=== PATIENT | female | born 1960 | race Caucasian/White ===

== ENCOUNTER 2024-06-04 20:47 | Inpatient (IN) | payer MEDICARE, SELFPAY ==
[2024-06-04] VITALS (11 sets, daily range): BP systolic 121–160; BP diastolic 65–87; BMI 44.4; BMI 43.2
--- NOTE | 2024-06-04 19:02 | ED.GENMED ---
History of Present Illness
General
Chief Complaint: Breathing Problem
Source: patient and ambulance crew
Exam Limitations: none
Time Seen by Provider: 06/04/24 18:56
Nursing documentation reviewed up to this point in time: agreed with
History of Present Illness
History of Present Illness:
63-year-old female with a past medical history of hypertension, diabetes who presents to the ER for evaluation of increasing shortness of breath in the setting of recent viral syndrome and positive outpatient COVID test. Patient reports that she
started feeling normal on and symptoms have progressed since then. She has had nausea and dry heaving, poor appetite. She says that she has had achiness, nasal congestion and cough. Over the past day or 2 has had increasing shortness of
breath and today very lethargic and EMS was called to bring her to the emergency room. She denies any chest pain. She denies any abdominal pain. No diarrhea. She denies any swelling in the legs. She says she had a positive outpatient COVID test
today but has not been on Paxlovid or other treatment. per EMS she was noted to be hypoxic in the 60s on their arrival, improved to 85% on nonrebreather mask.
Review of Systems
Review of Systems
All Other Systems: ROS reviewed and negative except as documented in HPI and ROS
Constitutional: Reports fatigue; Denies fever or chills
EENT: Reports runny nose; Denies sore throat
Respiratory: Reports cough and trouble breathing
Cardiac: Denies chest pain or palpitations
ABD/GI: Reports nausea; Denies abdominal pain, vomiting or diarrhea
: Denies flank pain
Musculoskeletal: Reports muscle pain; Denies neck pain or back pain
Neurological: Denies dizzy or headache
Phy Exam
Physical Exam
Physical Exam:
General: Awake, alert, oriented x3; in mild to moderate respiratory distress
Head: Normocephalic, atraumatic
Eyes: Conjunctiva normal
Throat: Airway intact, handling secretions
Neck: Trachea midline, supple without meningismus
Lungs: Patient has right greater than left Rales; she is hypoxic to 87% on a nonrebreather mask; she is tachypneic with respiratory rate of 30
Heart: Tachycardia with regular rhythm, no murmurs, gallops, or rubs
Abd: Soft, non distended, nontender
Neuro: No gross deficits
Skin: no rash
Extremities: No edema in extremities, equal pulses in all extremities
Scores
Heart Failure Risk
Heart Failure Risk Score: Not Applicable
Heart Score for Chest Pain Patients
STEMI patient?: Not applicable
Withdrawal Assessment of Alcohol
Withdrawal Assessment Completed?: Not applicable
Sepsis
Sepsis Screening
Sepsis Assessment: Sepsis
Sepsis Screen
Sepsis Screen: Sepsis
Date: 06/04/24
Time: 19:31
Course
Orders/Labs/Results
Orders:
Orders
06/04/24 18:56
Electrocardiogram (*1) Urgent
Reason for Study: Shortness of Breath
EKG- Treatment ONCE
CR Chest Portable - 1 View Urgent
Comment:
Reason For Exam: sob
Reason Study Needs to be Portable: Unable to Transport
06/04/24 18:59
COVID-19 Antigen Urgent
Source: Nasal Swab
Complete Blood Count/With Diff Urgent
Comprehensive Metabolic Panel Urgent
Lactate Level [Lactic Acid] Urgent
PTT Urgent
Prothrombin Time Urgent
Influenza A+B Rapid Molecular Urgent
ANANT Source: Nasal Swab
Specimen Description:
06/04/24 19:00
Blood Culture Q30M
ANANT Source: Blood/Venous
Specimen Description:
06/04/24 19:27
Dexamethasone Sod Phosphate [Decadron] 10 mg IV NOW STA
Piperacillin/Tazo 3.375 Gram [Zosyn] 3.375 gram in 50 ml IV NOW
Vancomycin [Vancocin] 2,000 mg 0.9% Sodium Chloride 500 ml [Nss] 500 ml IV NOW
06/04/24 19:30
Blood Culture Q30M
ANANT Source: Blood/Venous
Specimen Description:
0.9% Sodium Chloride 1000 ml [Nss] 1,000 ml IV BOLUS
Abnormal Lab Results
06/04/24
18:59
WBC 11.9 H 10^3/uL
(4.8-10.8)
MCH 26.9 L pg
(27.0-31.0)
MCHC 31.2 L g/dL
(33.0-37.0)
MPV 10.7 H fL
(7.4-10.4)
Abs Immat Gran (auto) 0.1 H 10^3/uL
(0-0.05)
Absolute Neuts (auto) 10.0 H 10^3/uL
(1.4-6.5)
Absolute Lymphs (auto) 0.9 L 10^3/uL
(1.2-3.4)
Absolute Monos (auto) 0.8 H 10^3/uL
(0.1-0.6)
Immature Gran % 0.9 H %
(0-0.5)
Neutrophils % 84.1 H %
(42.2-75.2)
Lymphocytes % 7.7 L %
(20.5-51.1)
PT 14.7 H Sec
(11.4-14.6)
Glucose 285 H mg/dl
(70-99)
06/04/24 18:59
06/04/24 18:59
Vital Signs
Initial and Last Documented VS:
Initial Vital Signs
Pulse Resp Pulse Ox
123 26 92
06/04/24 18:47 06/04/24 18:47 06/04/24 18:47
Last Documented Vital Signs
Pulse Resp BP Pulse Ox
97 31 160/78 94
06/04/24 19:00 06/04/24 19:00 06/04/24 19:00 06/04/24 19:00
MDM/Problems Addressed
Differential Diagnosis Includes:
Pneumonia�bacterial versus viral (COVID), bronchitis, pneumothorax, PE
MDM/Problems Addressed:
63-year-old female presents with progressive dyspnea and respiratory distress in the setting of positive outpatient COVID test and recent viral syndrome. She arrives quite hypoxic requiring 100% nonrebreather to maintain saturation in the high 80s.
She is tachypneic, tachycardic; normotensive. Physical exam as above. Respiratory called to place patient on high flow nasal cannula�this improved oxygenation and tachypnea. Will obtain a stat chest x-ray and EKG. Send labs including a CBC,
CMP, lactate and blood cultures. Swab for COVID and flu. Monitor very closely anticipate admission pending initial assessment.
Chest x-ray reviewed by shreyaows severe right-sided pneumonia. Initial labs reviewed: CBC shows leukocytosis to 11.9. Lactate less than 2. With multiple SIRS criteria and severe pneumonia will cover with antibiotics upfront although in the
setting of positive COVID possible this is a viral pneumonia. Will admit for continued management of acute respiratory failure secondary to pneumonia. Case discussed with hospitalist for admission.
Chronic conditions affecting care:
Obesity
*Radiology
Radiology exam reviewed: preliminary read by ED provider and radiology read reviewed
*Pulse Oximetry
Patient hypoxic: yes
*Critical Care Note
Total Time (30-74mins, 75-104mins- exclusive of procedures): 34
comment:
Critical care statement: A total of 34 minutes of critical care time was provided for this patient. This includes management of unstable vital signs, evaluation of the patient at bedside, frequent reassessment, discussion with
consultants/hospitalist, and review of pertinent medical records. This time was separate from time utilized to perform any aforementioned documented procedures
Data Reviewed
Review of Other/Old Records Reveals: Labs and Records
Source: patient and records
Patient Management
Discussion with other providers: Hospitalist (Discussed with hospitalist)
Escalation/DeEscalation of care consider admission/obs:
Admission indicated
ED Attending Note
-
Portions of this chart may have been created with voice recognition software.� Occasional wrong word or��sound alike� substitutions may have occurred due to the inherent limitations of voice recognition software.
Discharge Plan
Departure
Presentation/result/management discussed w/ accepting MD/DO: Hospitalist
Discharge Problem:
Pneumonia, COVID-19, Acute hypoxemic respiratory failure
Prescriptions:
No Action
atorvastatin [Lipitor] 20 mg Tablet
20 mg PO DAILY
pioglitazone [Actos] 45 mg Tablet
45 mg PO DAILY
amlodipine [Norvasc] 10 mg Tablet
10 mg PO DAILY
losartan 100 mg Tablet
100 mg PO DAILY
escitalopram oxalate [Lexapro] 10 mg Tablet
10 mg PO HS
glyburide 5 mg Tablet
10 mg PO BID
ondansetron [Zofran ODT] 4 mg Tablet,Disintegrating
4 mg PO Q6HPRN PRN (Reason: nausea)
Interventions
Interventions:
*Risk Screen - Suicide Last Done: 06/04/24 19:09
*General Assessment Last Done: 06/04/24 19:25
*Neglect/Abuse Screening Last Done: 06/04/24 19:09
*ED COVID-19 Vaccine History Last Done: 06/04/24 19:09
Discharge Date and Time
Print Language: FRENCH
[2024-06-04 19:14] LABS: % Basophils 0.3 % (0-2); % Eosinophils 0.2 % (0-6); % Immature Granulocytes 0.9 % (0-0.5); % Lymphocytes 7.7 % (20.5-51.1); % Monocytes 6.8 % (1.7-9.3); % Neutrophils 84.1 % (42.2-75.2); Absolute Immature Granulocytes 0.1 10^3/uL (0-0.05); Absolute Lymphocytes 0.9 10^3/uL (1.2-3.4); Absolute Monocytes 0.8 10^3/uL (0.1-0.6); Hematocrit 38.8 % (37.0-47.0); Hemoglobin 12.1 g/dL (12.0-16.0); Mean Corp Hgb Conc. 31.2 g/dL (33.0-37.0); Mean Corpuscular Hgb 26.9 pg (27.0-31.0); Mean Corpuscular Volume 86.4 fL (81.0-99.0); Mean Platelet Volume 10.7 fL (7.4-10.4); Nucleated Red Blood Cells % 0 %; Platelet Count 242 10^3/uL (130-400); Red Blood Cell Count 4.49 10^6/uL (4.20-5.40); Red Cell Dist. Width 13.9 % (11.5-14.5); White Blood Cell Count 11.9 10^3/uL (4.8-10.8)
[2024-06-04 19:21] LABS: INR 1.12; PT 14.7 Sec (11.4-14.6)
[2024-06-04 19:22] LABS: APTT 30.7 Sec (23.4-35.0)
[2024-06-04 19:25] LABS: Lactic Acid 1.9 mmol/L (0.7-2.0)
[2024-06-04 19:27] LABS: ALT (SGPT) 23 U/L (0-35); AST (SGOT) 36 U/L (14-36); Alkaline Phosphatase 117 U/L (38-126); Blood Urea Nitrogen 16 mg/dl (7-17); Calcium 9.1 mg/dl (8.4-10.2); Carbon Dioxide 24 mmol/L (22-30); Chloride 100 mmol/L (98-107); Estimated Creatinine Clearance 113 ml/min; Glucose 285 mg/dl (70-99); Potassium 3.7 mmol/L (3.5-5.1); Sodium 137 mmol/L (135-145); Total Bilirubin 0.5 mg/dl (0.2-1.3); Total Protein 6.7 g/dl (6.3-8.2); eGFR > 60.00
[2024-06-04] MEDS: ZOSYN 50 IV (19:39)
[2024-06-04] MEDS: NSS 1000 IV (19:39)
[2024-06-04] MEDS: DECADRON 10 MG IV (19:39)
[2024-06-04 19:46] LABS: COVID-19 Antigen Negative (Negative)
[2024-06-04] MEDS: VANCOCIN 540 MG IV (20:09)
--- NOTE | 2024-06-04 20:17 | HPS.HSE ---
Addendum entered and electronically signed by Ginger Ramos MD 06/04/24 21:17:
Patient desaturating on high flow oxygen. Trying noninvasive ventilator. Upgrading to ICU. Give 40 IV Lasix. Starting remdesivir. Patient positioned on left side due to worsening infiltrate on right side.
Original Note:
Family Physician
-
Family Physician:
Chief Complaint
-
shortness of breath
History of Present Illness
63-year-old female past medical history of hypertension, diabetes, presenting for increasing shortness of breath. Patient felt normal 3 days ago and symptoms have progressed since then. She had nausea and dry heaving, poor appetite and abdominal
pain which is since resolved. She has had achiness, nasal congestion and cough which is sometimes productive. She has had increasing shortness of breath over the past 2 days with lethargy. She denies chest pain. Denies diarrhea. Denies swelling
in the legs. She had positive home COVID test today but has not been on any other treatment. EMS noted her to be hypoxic in the 60s on arrival.
Denies any history of lung problems.
She denies smoking. She denies drugs. She drinks alcohol occasionally.
Medical History
Past Medical History
Past Medical History: Reports Other (hypertension, diabetes,)
Past Surgical History: Reports Tonsilectomy
Social History
Tobacco: Non-smoker
Alcohol: Occasional
Drug: None
Family History
Family History: Not pertinent
Allergies / Home Medications
Allergies reflects when Allergies were last updated in [email or web address].
Home Medications with original date entered in [email or web address]
Allergy/Medication List:
Allergies
Allergy/AdvReac Type Severity Reaction Status Date / Time
No Known Allergies Allergy Unverified 06/04/24 18:55
Home Medications
amlodipine 10 mg tablet (Norvasc) 10 mg PO DAILY 06/04/24
atorvastatin 20 mg tablet (Lipitor) 20 mg PO DAILY 06/04/24
escitalopram oxalate 10 mg tablet (Lexapro) 10 mg PO HS 06/04/24
glyburide 5 mg tablet 10 mg PO BID 06/04/24
losartan 100 mg tablet 100 mg PO DAILY 06/04/24
ondansetron 4 mg disintegrating tablet 4 mg PO Q6HPRN PRN nausea 06/04/24
pioglitazone 45 mg tablet (Actos) 45 mg PO DAILY 06/04/24
Review of Systems
-
History Source: Patient
A 12 point ROS was completed and negative except as noted: Yes
Constitutional: Reports No Symptoms
EENT: Reports No Symptoms
Respiratory: Reports See HPI
Cardiac: Reports No Symptoms
Abdomen/GI: Reports No Symptoms
: Reports No Symptoms
Musculoskeletal: Reports No Symptoms
Skin: Reports No Symptoms
Neurological: Reports No Symptoms
Endocrine: Reports No Symptoms
Hematologic/Lymphatic: Reports No Symptoms
Psych: Reports No Symptoms
Physical Exam
Vital Signs
Vital Signs
Pulse Resp BP Pulse Ox
89 23 160/78 95
06/04/24 19:45 06/04/24 19:45 06/04/24 19:00 06/04/24 19:47
Physical Exam
General: Well Developed, Well Nourished and No Apparent Distress
HEENT: NormoCephalic, Moist mucous membranes and Atraumatic
Respiratory: Clear
Cardiac: S1/S2 and Regular Rhythm; No Murmur or Rub
GI: Soft, Non Tender, Non Distended and Normal Bowel Sounds; No Organomegaly
Rectal: Deferred by Provider
Musculoskeletal: No Clubbing, No Cyanosis and No Edema
Skin: No Rash
Neuro: Nonfocal/grossly intact
Laboratory Results
-
06/04/24 18:59
06/04/24 18:59
Laboratory Results
PT 14.7 Sec (11.4-14.6) H 12/15/24 18:59
INR 1.12 06/04/24 18:59
APTT 30.7 Sec (23.4-35.0) 06/04/24 18:59
Lactic Acid 1.9 mmol/L (0.7-2.0) 06/04/24 18:59
Total Bilirubin 0.5 mg/dl (0.2-1.3) 06/04/24 18:59
AST 36 U/L (14-36) 06/04/24 18:59
ALT 23 U/L (0-35) 06/04/24 18:59
Alkaline Phosphatase 117 U/L (38-126) 06/04/24 18:59
Data Reviewed
-
Lab Data: Labs Reviewed by me
Old Records: Reviewed
Impression/Plan
-
IMPRESSION:
PLAN:
# Hypoxemic respiratory failure likely secondary to COVID versus bacterial pneumonia
-Patient on high flow
-COVID-positive as outpatient but negative here
-Chest x-ray shows bilateral parenchymal opacities right greater than left likely pneumonia
-Dexamethasone 6 mg daily
-Check sputum culture
-Check strep antigen, Legionella, MRSA
-Vancomycin/Zosyn
-May benefit from remdesivir, will defer to pulmonary
# Hyperglycemia secondary to infection
#Type 2 diabetes
-Insulin sliding scale
-Hold pioglitazone, glyburide
-Start Lantus 10 units instead given addition of steroids
Essential hypertension
-Continue losartan, amlodipine
Anxiety/depression
-Continue Lexapro
Full code
DVT prophylaxis�Lovenox
Diabetic diet
[2024-06-04] MEDS: LASIX 40 MG IV (21:16)
[2024-06-04] MEDS: LEXAPRO PO (22:55)
[2024-06-04] MEDS: LANTUS 0.1 UNITS SC (22:55)
[2024-06-04] MEDS: VEKLURY 250 MG IV (23:00)
[2024-06-04 23:05] LABS: Glucose - Point of Care 248 mg/dl (70-99)
[2024-06-04 23:19] LABS: HCO3 23.1 mmol/L (21-28); O2 Saturation % 98.8 % (94-98); PCO2 40 mmHg (32-35); PO2 91 mmHg (83-108); pH 7.37 (7.35-7.45)
--- NOTE | 2024-06-04 23:21 | W.PN.UPDATE ---
Update Note
Progress Note Update
Operation/Procedure: right radial arterial line placement
Consent for operation or procedure: Emergent need due to patient condition - need for invasive monitoring per protocol
Indications: Hemodynamic monitoring
After properly positioning the patient's wrist in the standard fashion, the site was prepped and draped in a sterile fashion. The radial artery was entered, noting bright red, pulsatile flow. A guidewire was easily inserted, the needle removed, and
the catheter was then placed using the Seldinger technique. The guidewire was removed, with good flow present. The catheter was then connected to the transducer with a good waveform noted. The catheter was secured with an occlusive dressing was
placed after properly cleaning and prepping the site.
Complications: The patient tolerated the procedure well and no complications were noted.
Estimated Blood Loss: minimal
Plan: Arterial line to remain in place for hemodynamic monitoring.
--- NOTE | 2024-06-04 23:31 | W.PN.SEPSIS ---
Sepsis
Vital Signs
Pulse Resp BP Pulse Ox
90 30 160/87 92
06/04/24 21:45 06/04/24 21:45 06/04/24 21:16 06/04/24 21:45
Physical Exam
Physical Exam:
A focused exam was performed after fluid resuscitation.
Capillary Refill
Bilateral Upper Extremity:
Rosette Time: Less than 3 sec
Bilateral Lower Extremity:
Rosette Time: Less than 3 sec
Pulse Evaluation
Bilateral Radial:
Pulse Evaluation: Present
Bilateral Dorsalis Pedis:
Pulse Evaluation: Present
--- NOTE | 2024-06-04 23:43 | PHA.VAN.IN ---
Assessment
- Assessment
Renal Function: Unknown baseline
AUC Dosing Plan
- Dosing Variables
Dosing Weight (kg): 110.6
Dosing CrCl (ml/min): 113
Vd coefficient (L/kg): 0.5
- Empiric Dosing
Initial / Loading Dose: Vancomycin 2000mg given 06/04 at 2000
Maintenance Regimen: Vancomycin 1250mg IV Q12h to start 06/05 at 0600
Estimated AUC (mcg*h/mL): 494
Estimated Peak (mcg*h/mL): 32.7
Estimated Trough (mcg/ml): 11.6
Estimated Half Life (H): 7.1
- Monitoring
No levels ordered at this time: Will order levels prior to steady state.
MRSA Screen: Ordered per protocol
Pharmacokinetics Vancomycin I
- -
Patient Age: 63
Patient Sex: Female
Vancomycin Day #: 1
Indication: Pulmonary/Respiratory
Requesting Provider: Dr. Ramos
Pertinent Antimicrobial Allergies:
NKA
Height / Weight:
Height 5 ft 3 in
Actual Weight 110.6 kg
Pertinent Past Medical History: BMI 43.2
- Vital Signs / Lab Results
Pulse Resp BP Pulse Ox
68 23 121/65 97
06/04/24 23:31 06/04/24 23:31 06/04/24 23:31 06/04/24 23:31
Lab Results - Hematology
06/04/24
18:59
WBC 11.9 H
Lab Results - Chemistry
06/04/24
18:59
BUN 16
Creatinine 0.6
Estimated Creat Clear 113
Albumin 4.0
06/04/24
18:59
Lactic Acid 1.9
Microbiology Results
06/04/24 18:59 Influenza Types A & B (ALYCE) - Final
Nasal Swab Negative for Influenza A & B, NAAT
Negative results must be combined with clinical observations
and patient history.
Nucleic Acid Amplification test (NAAT)performed on the
[employer] platform.
--- NOTE | 2024-06-04 23:52 | PTCARENOTE ---
On assessment pt AAOX3, denies pain, increasing anxious, generalized weakness, SR on the monitor, pt on NIV, 97%, NPO, purwick in place, skin intact, Natasha placed, CXR completed, at bedside, call lyon in reach
[2024-06-05] VITALS (19 sets, daily range): BP systolic 113–155; BP diastolic 60–96; BMI 44.5
[2024-06-05] MEDS: NOVOLOG FLEXPEN-LOW RESISTANCE SC (00:39)
[2024-06-05] MEDS: ZOSYN 50 IV ×2 (01:02→08:20)
[2024-06-05 04:08] LABS: B.E. -1.8 mmol/L; HCO3 23.1 mmol/L (21-28); PCO2 39 mmHg (32-35); PO2 220 mmHg (83-108); pH 7.38 (7.35-7.45)
[2024-06-05 04:17] LABS: % Basophils 0.1 % (0-2); % Eosinophils 0.6 % (0-6); % Immature Granulocytes 0.5 % (0-0.5); % Lymphocytes 8.2 % (20.5-51.1); % Monocytes 3.3 % (1.7-9.3); % Neutrophils 87.3 % (42.2-75.2); Absolute Eosinophils 0.1 10^3/uL (0-0.7); Absolute Immature Granulocytes 0.1 10^3/uL (0-0.05); Absolute Lymphocytes 0.8 10^3/uL (1.2-3.4); Absolute Monocytes 0.3 10^3/uL (0.1-0.6); Absolute Neutrophils 8.3 10^3/uL (1.4-6.5); Hematocrit 33.9 % (37.0-47.0); Hemoglobin 10.7 g/dL (12.0-16.0); Mean Corp Hgb Conc. 31.6 g/dL (33.0-37.0); Mean Corpuscular Hgb 26.8 pg (27.0-31.0); Mean Corpuscular Volume 84.8 fL (81.0-99.0); Mean Platelet Volume 10.9 fL (7.4-10.4); Nucleated Red Blood Cells % 0 %; Platelet Count 235 10^3/uL (130-400); Red Cell Dist. Width 13.9 % (11.5-14.5); White Blood Cell Count 9.5 10^3/uL (4.8-10.8)
[2024-06-05 04:45] LABS: Procalcitonin 0.17 ng/ml (0.0-0.25)
[2024-06-05 04:52] LABS: ALT (SGPT) 25 U/L (0-35); AST (SGOT) 64 U/L (14-36); Albumin 3.4 g/dl (3.5-5.0); Alkaline Phosphatase 77 U/L (38-126); Blood Urea Nitrogen 19 mg/dl (7-17); Calcium 8.7 mg/dl (8.4-10.2); Carbon Dioxide 20 mmol/L (22-30); Chloride 105 mmol/L (98-107); Estimated Creatinine Clearance 96 ml/min; Glucose 260 mg/dl (70-99); Magnesium 1.9 mg/dl (1.6-2.3); Phosphorus 3.8 mg/dl (2.5-4.5); Potassium 4.3 mmol/L (3.5-5.1); Sodium 137 mmol/L (135-145); Total Bilirubin 0.5 mg/dl (0.2-1.3); Total Protein 6.1 g/dl (6.3-8.2); eGFR > 60.00
[2024-06-05] MEDS: VANCOCIN 275 MG IV (05:51)
[2024-06-05 05:54] LABS: Glucose - Point of Care 240 mg/dl (70-99)
--- NOTE | 2024-06-05 06:46 | PTCARENOTE ---
BS 240 at 0530, pharmacy called for insulin pen, no med on the floor yet
--- NOTE | 2024-06-05 08:13 | CON.INTV ---
Consultation
Consultation Request
Date/Time Consultation Requested: 06/04/20242316
Date/Time Consultation Performed: 06/05/2024807
Requesting Provider: JENNIFER Wheatley
Performing Provider: Dr. Olivas
Reason for Consultation: Hypoxia/Pneumonia
Medical History
-
Chief Complaint: SOB
History of Present Illness:
63-year-old morbidly obese female non-smoker with a past medical history of hypertension, hyperlipidemia, DM type II and anxiety who presents with low oxygen levels. Patient has been more short of breath for past 2 days which worsened and 911 was
called and when EMS arrived her saturations were in the 60s on room air. 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
dry heaving. About 3 days prior to arrival she felt in her usual state of health. EMS applied NRB onto the patient - initially in the ER she was tachycardic to 123, breathing at 26 breaths/min, saturating 92% on nonrebreather and BP 156/86.
Initial labs showed mild leukocytosis to 11.9, glucose 285, and COVID-19 antigen negative. Blood cultures were collected and flu A/B swab was negative. Initial CXR showed bilateral parenchymal opacities, worse on the right. In the ER she was
given Decadron 10 mg IVP X1, Zosyn, vancomycin and IVF with NS 0.9% X1 liter. She was then transitioned to high flow nasal cannula however still was hypoxic so she was transition to noninvasive ventilation, and admitted to the ICU for further care.
Services Delivery Driver services consulted for additional management/recommendations.
Patient was seen and evaluated this morning at bedside. Currently, HR: 77, BP: 144/55, SpO2: 90% on noninvasive ventilation with IPAP 16, EPAP: 8 and FiO2 60%. Her VTe is 524 mL and she is breathing at 23 breaths/min. She says she feels okay
although she is still coughing up some phlegm, and says that the mask is helping her with her shortness of breath. She currently denies chest pain, [place], abdominal pain, nausea, fevers or chills.
PMHx: Hypertension, hyperlipidemia, DM type II, morbid obesity, anxiety, sebaceous cyst s/p I&D
PSHx: Tonsillectomy, right knee arthroscopy, D&C
Past Medical History
Past Medical History: Other (Above as per HPI)
Past Surgical History: Other (Above as per HPI)
Social History
Tobacco: Non-smoker
Alcohol: Occasional (Socially)
Drug: None
Family History
Family History: CAD (Father)
Allergies / Home Medications
Allergies
Allergy/AdvReac Type Severity Reaction Status Date / Time
No Known Allergies Allergy Unverified 06/04/24 18:55
Home Medications
�Medication �Instructions �Recorded �Confirmed �Last Taken �Type
amlodipine 10 mg tablet (Norvasc) 10 mg PO DAILY 06/04/24 06/04/24 06/04/24 History
atorvastatin 20 mg tablet (Lipitor) 20 mg PO DAILY 06/04/24 06/04/24 06/04/24 History
escitalopram oxalate 10 mg tablet 10 mg PO HS 06/04/24 06/04/24 06/03/24 History
(Lexapro)
glyburide 5 mg tablet 10 mg PO BID 06/04/24 06/04/24 06/04/24 History
losartan 100 mg tablet 100 mg PO DAILY 06/04/24 06/04/24 06/04/24 History
ondansetron 4 mg disintegrating 4 mg PO Q6HPRN PRN nausea 06/04/24 06/04/24 06/04/24 History
tablet
pioglitazone 45 mg tablet (Actos) 45 mg PO DAILY 06/04/24 06/04/24 06/04/24 History
Review of Systems
-
History Source: Patient
All other systems: Negative unless noted (12 point ROS performed and is negative unless mentioned above.)
Vitals / Labs / Diagnostic Testing
Vital Signs
Temp Pulse Resp BP Pulse Ox
98.4 F 63 20 129/64 98
06/05/24 04:33 06/05/24 05:45 06/05/24 05:45 06/05/24 05:00 06/05/24 05:45
Lab Data
06/05/24 03:57
06/05/24 03:57
Laboratory Results
06/04/24 06/04/24 06/05/24
18:59 23:09 03:57
PT 14.7 H
INR 1.12
APTT 30.7
pH 7.37 7.38
pCO2 40 H 39 H
pO2 91 220 H
HCO3 23.1 23.1
O2 Delivery Level
Microbiology
06/04/24 18:59 Nasal Swab Influenza Types A & B (ALYCE) - Final
Negative for Influenza A & B, NAAT
Negative results must be combined with clinical observations
and patient history.
Nucleic Acid Amplification test (NAAT)performed on the
[employer] platform.
Diagnostic Testing:
Physical Exam
-
HEENT: Normocephalic and Anicteric
Cardiovascular: S1/S2, Rub (negative) and Peripheral Edema (negative)
Respiratory: Wheeze (negative), Rales (Right posterior hemithorax), Rhonchi (negative), Accessory Resp Muscle Use (negative) and Other (Diminished breath sounds bilaterally)
GI: Soft, Distended (Abdominal obesity), Non Tender and Normal Bowel Sounds
Neurology: AO x 3 and Tremors (negative)
Skin: Warm and Dry
General: Respiratory Distress (negative), Comfortable, Fever (negative) and Chills (negative)
Assessment
-
Assessment: 63-year-old morbidly obese female non-smoker with a past medical history of hypertension, hyperlipidemia, DM type II and anxiety who presents with low oxygen levels. Patient has been more short of breath for past 2 days which worsened
and 911 was called and when EMS arrived her saturations were in the 60s on room air. 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
discomfort and dry heaving. About 3 days prior to arrival she felt in her usual state of health. EMS applied NRB onto the patient - initially in the ER she was tachycardic to 123, breathing at 26 breaths/min, saturating 92% on nonrebreather and
BP 156/86. Initial labs showed mild leukocytosis to 11.9, glucose 285, and COVID-19 antigen negative. Blood cultures were collected and flu A/B swab was negative. Initial CXR showed bilateral parenchymal opacities, worse on the right. In the ER
she was given Decadron 10 mg IVP X1, Zosyn, vancomycin and IVF with NS 0.9% X1 liter. She was then transitioned to high flow nasal cannula however still was hypoxic so she was transition to noninvasive ventilation, and admitted to the ICU for
further care. Services Delivery Driver services consulted for additional management/recommendations.
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
Impression:
#Acute respiratory failure with hypoxia due to multifocal pneumonia in the setting of reported being positive for COVID-19 recently requiring NIV; possible component of acute decompensated heart failure with acute pulmonary edema given marked
improvement in CXR within 24 hrs with Tx with NIV and s/p lasix
#CAP (R>L)
#Acute anemia
#Metabolic acidosis with normal anion gap
#DM type II (HbA1C: 7.4 on 06/05/2024) c/b hyperglycemia
#Transaminitis
#Morbid Obesity (BMI: 44.5)
#History of hypertension
#History of hyperlipidemia
#Anxiety
Plan:
- Continue with NIV and attempt to transition off NIV to high flow nasal cannula while maintaining SpO2 >90-94%
- Blood gas does not show evidence of hypercapnia, hence once her hypoxia improves, then can use BiPAP prn at that point
- Keep NPO while on NIV; once off NIV then can cautiously start a diabetic diet assuming she is not SOB or tachypneic
- Aspiration precautions
- Continue with broad-spectrum antibiotics - currently on Zosyn + IV vancomycin
- Given she is improving with radiographic improvement, and no risk factors for MRSA or Pseudomonas, will change Zosyn/IV vancomycin to ceftriaxone and continue atypical coverage w/ doxy
- Follow-up infectious cultures with blood culture, sputum culture (if patient can produce a decent sample) and urine antigens for Legionella/strep pneumonia
- Trend procal for assuring we have source control
- Check echo given possible component of pulmonary edema as her CXR markedly improved s/p positive airway pressure and lasix; monitor I/O and trend sCr and UOP
- Check/trend BNP
- Given that patient reports that she was positive on her COVID-19 swab via a home test that her neighbor gave her, would re-check a COVID swab while here; given that she was already COVID-19 negative here since hospitalized, if she is negative x 2
then we will stop remdesivir at that time
- Continue with Decadron in the meantime (currently on 6 mg IV q24hr)
- Maintain euglycemia while on systemic steroids (goal BG 140-180mg/dL); continue lantus and use ISS to reach BG goal; can consider resuming OAG once she starts PO diet
- Maintain MAP>65
- Resume PO anti-hypertensives once off NIV
- Trend sHCO3 level with goal 22-26
- Trend LFTs
- Replete electrolytes with K>4, Mg>2
- Trend H/H and transfuse if needed to keep Hb>7g/dL; keep plt>20k, unless there is concern for bleeding then keep plt>50k
- prn nebulized bronchodilators - not currently bronchospastic
- Incentive spirometer encouraged 10x per hour for at least 4 hrs a day
- DVT ppx: LMWH
If patient is transitioned off of NIV onto high flow nasal cannula and remains stable for >6 hours then will downgrade to IMU; if hypoxia markedly improves and she is on midflow nasal cannula then will transfer to telemetry instead. Will make final
disposition decision by later today. Once downgraded then Pulmonary service will continue to follow along.
Data:
CXR 06/04/2024: Bilateral parenchymal opacities, right greater than left. Findings felt to most likely represent pneumonia. Asymmetric pulmonary edema is a differential consideration.
Total time spent today was 78 minutes for this encounter. Time includes reviewing laboratory test/imaging results, reviewing pertinent medical records, obtaining and reviewing medical history, performing an appropriate exam, ordering medications,
tests and procedures. Time also includes documentation of this encounter, coordinating patient care and communicating with other healthcare professionals. Total time does not include separately billed tests performed on this date of service.
[2024-06-05] MEDS: NOVOLOG FLEXPEN-LOW RESISTANCE 3 UNITS SC (08:23)
[2024-06-05 08:34] LABS: Glycohemoglobin (HgbA1c) 7.4 % (4.0-5.6)
--- NOTE | 2024-06-05 08:35 | W.PN.HOSP.TC ---
Today's Communication/Plan
-
wean NIV as able
discussed with RN, will discuss with infection control on repeat covid testing, likely treat as positive as was positive at home
Vanc/Zosyn, add on atypical coverage
Decadron
Assessment / Plan
Assessment / Plan
Mr. Kayleigh Laura is a 63 yo woman with hx essential hypertension, DM presents with 3 days GI symptoms, congestion, body aches found to be COVID positive at home presents with increasing shortness of breath noted to be hypoxic to 60's by EMS on
arrival.
# Hypoxemic respiratory failure likely secondary to COVID with superimposed bacterial pneumonia
-Patient desaturated on high-flow, now on non-invasive ventilation
-CXR with bilateral airspace opacities with improvement this AM, may have been partially related to fluid (s/p lasix)
-COVID-positive as outpatient but negative here
-Chest x-ray shows bilateral parenchymal opacities right greater than left likely pneumonia
-Check sputum culture
-Check strep antigen, Legionella, MRSA
-Vancomycin/Zosyn, will add azithromycin for atypical coverage
-Dexamethasone 6 mg daily
-IV Remdesivir
# Hyperglycemia secondary to infection
#Type 2 diabetes
-Insulin sliding scale
-Hold pioglitazone, glyburide
-Start Lantus 10 units instead given addition of steroids
Essential hypertension
-hold ENGINEERING MODEL MAKER losartan, amlodipine
Anxiety/depression
-Continue Lexapro
Full code
DVT prophylaxis�Lovenox
Diabetic diet
Total Critical Care Time 45 minutes. I was immediately available to the patient and staff. I personally examined, reviewed labs, diagnostic images/reports, interpretations, treatment plans, discussed patient care with other providers and family
or caregivers (if patient is unable to make decisions), entered orders as appropriate and documented the medical record.
Anticipated Discharge: > 48 hours
Subjective/Interval History
-
Date of Service: June 05, 2024
seen on NIV mask
feeling okay
Objective Data
-
Labs:
Laboratory Results
06/04/24 06/05/24
23:09 03:57
WBC 9.5
Hgb 10.7 L
Hct 33.9 L
Plt Count 235
HCO3 23.1 23.1
Sodium 137
Potassium 4.3
Chloride 105
Carbon Dioxide 20 L
BUN 19 H
Creatinine 0.7
Glucose 260 H
Calcium 8.7
Total Bilirubin 0.5
AST 64 H
ALT 25
Alkaline Phosphatase 77
Vital Signs:
Vital Signs
Temp Pulse Resp BP Pulse Ox
98.4 F 63 20 129/64 98
06/05/24 04:33 06/05/24 05:45 06/05/24 05:45 06/05/24 05:00 06/05/24 05:45
I&O
06/04/24 06/05/24 06/06/24
06:59 06:59 06:59
Output Total 100 / 100
Balance -100 / -100
Review of Systems
-
History Source: Patient
All other systems: Reviewed and negative
Physical Exam
-
General: Other (awake, alert with NIV mask on )
HEENT: PERRLA
Respiratory: Decreased Breath Sounds
Cardiac: Regular Rhythm and S1/S2
GI: Soft and Nontender
Musculoskeletal: No Edema
Skin: Warm and Dry; Negative Rash
Neuro: AO x 3
Psych: Calm
Data Reviewed
-
Diagnostic Radiology: Report Reviewed by me
Labs: Labs Reviewed by me
--- NOTE | 2024-06-05 09:32 | PTCARENOTE ---
Respiratory at bedside D/C NIV, now on high flow 50/55 tolerating well. 93%
[2024-06-05] MEDS: VIBRAMYCIN 260 MG IV (10:03)
[2024-06-05] MEDS: LIPITOR 20 MG PO (10:04)
[2024-06-05] MEDS: NOVOLOG FLEXPEN-MODERATE RESISTANCE 3 UNITS SC ×2 (11:43→17:39)
[2024-06-05] MEDS: NOVOLIN N vial 0.15 UNITS SC (11:43)
[2024-06-05 11:44] LABS: Glucose - Point of Care 221 mg/dl (70-99)
[2024-06-05] MEDS: TYLENOL 650 MG PO (11:46)
[2024-06-05] MEDS: NORVASC 10 MG PO (12:57)
--- NOTE | 2024-06-05 14:30 | CM ---
CM following re: discharge planning.
Discussed in Rounds, reviewed pt's chart.
Pt is a 63 year old female, admitted with primary dx of Hypoxemic respiratory failure likely secondary to COVID with superimposed bacterial pneumonia. Per Rounds meeting, pt currently requires 50L HFNC with FIO2 50%, continue supportive care
Pt lives with 2SH, 1 step to enter, has supportive family. 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 No DME, VN or SNF history.
PCP: Trudy Culver
Pharmacy: [facility]
D/C plan: home with family support.
CM will follow with discharge plan updates as hospitalization progresses
--- NOTE | 2024-06-05 14:45 | PTCARENOTE ---
Updated assessment trends ongoing. Weaning o2 as tolerated by pulmonary status. Presently weaned to 50lpm 50%fio2 will follow with respiratory cares team and Pulmonary /Boring Machine Set Up Operator evaluation thru shift. Updates with patient family via phone. Follow
up lab trends and micro ongoing. Continue hospitalist and date night caregiver updates in ICU.
[2024-06-05] MEDS: STERILE WATER FOR INJECTION 20 ML IV (15:06)
[2024-06-05] MEDS: ROCEPHIN 2000 MG IV (15:06)
[2024-06-05 16:26] LABS: Glucose - Point of Care 208 mg/dl (70-99)
[2024-06-05] MEDS: DECADRON 6 MG IV (17:39)
[2024-06-05] MEDS: LOVENOX 40 MG SC (17:41)
[2024-06-05] MEDS: LEXAPRO 10 MG PO (21:16)
[2024-06-05] MEDS: VIBRAMYCIN 100 MG PO (21:16)
[2024-06-05] MEDS: COZAAR 100 MG PO (21:17)
[2024-06-05] MEDS: LANTUS 0.15 UNITS SC (21:24)
[2024-06-05 21:34] LABS: Glucose - Point of Care 201 mg/dl (70-99)
[2024-06-05 21:45] LABS: COVID-19 Antigen Positive (Negative)
--- NOTE | 2024-06-05 22:03 | PTCARENOTE ---
Assessed with no s/s of distress. Pt A&Ox4. Moves all extremities equally. PERRLA 3. Pt NSR on monitor. (-) edema. (=) pulses palpable x4. Pt tolerating midlow NC @ 10L. Denies dyspnea on rest. Sats mid 90's. Lungs with slight crackles. Abd soft
nontender. Tolerated 75% of dinner. Pt using purewick. Urinated 650cc of bradley urine. No evidence of breakdown noted. Covid swab sent. returned (+). Covering SHREYA notified via [employer]. Will continue to monitor.
[2024-06-06] VITALS (13 sets, daily range): BP systolic 133–183; BP diastolic 64–89
--- NOTE | 2024-06-06 00:21 | PTCARENOTE ---
No change to pt status since initial assessment. No s/s of distress assessed. Will continue to monitor.
[2024-06-06 05:35] LABS: Hematocrit 34.6 % (37.0-47.0); Hemoglobin 10.8 g/dL (12.0-16.0); Mean Corp Hgb Conc. 31.2 g/dL (33.0-37.0); Mean Corpuscular Hgb 26.5 pg (27.0-31.0); Mean Platelet Volume 11.1 fL (7.4-10.4); Platelet Count 238 10^3/uL (130-400); Red Blood Cell Count 4.07 10^6/uL (4.20-5.40); White Blood Cell Count 14.4 10^3/uL (4.8-10.8)
[2024-06-06 05:48] LABS: ALT (SGPT) 28 U/L (0-35); AST (SGOT) 75 U/L (14-36); Albumin 3.2 g/dl (3.5-5.0); Alkaline Phosphatase 79 U/L (38-126); Blood Urea Nitrogen 31 mg/dl (7-17); Calcium 8.8 mg/dl (8.4-10.2); Carbon Dioxide 24 mmol/L (22-30); Chloride 107 mmol/L (98-107); Estimated Creatinine Clearance 76 ml/min; Glucose 220 mg/dl (70-99); Magnesium 2.1 mg/dl (1.6-2.3); Phosphorus 3.8 mg/dl (2.5-4.5); Potassium 3.9 mmol/L (3.5-5.1); Sodium 140 mmol/L (135-145); Total Bilirubin 0.1 mg/dl (0.2-1.3); Total Protein 5.7 g/dl (6.3-8.2); eGFR > 60.00
[2024-06-06 06:09] LABS: NT-proBNP 4250 pg/ml
--- NOTE | 2024-06-06 06:10 | PTCARENOTE ---
Pt assessment unchanged throughout the shift. t tx to IMU. Report given to Bess PITTMAN. Covid precautions maintained. No s/s of distress assessed.
--- NOTE | 2024-06-06 06:13 | PTCARENOTE ---
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 pt is AAOx3- able to make needs known. on 10L midflow, no c/o SOB. non-productive cough at times. lungs diminished, SOB on exertion per patient. NSR on the monitor. no c/o nausea. PW intact. covid precautions maintained.
care ongoing.
[2024-06-06 08:30] LABS: Glucose - Point of Care 219 mg/dl (70-99)
--- NOTE | 2024-06-06 08:54 | W.PN.HOSP.TC ---
Addendum entered and electronically signed by Shweta Thornton MD 06/07/24 06:16:
mild acute diastolic heart failure post fluids in ER improved with Lasix
sepsis 2/2 covid-19 and superimposed bacterial PNA
Original Note:
Today's Communication/Plan
-
IV Decadron, Remdesivir
Ceftriaxone/Doxy
Wean O2 as able
monitor BGL and adjust insulin as needed
Assessment / Plan
Assessment / Plan
Mr. Kayleigh Laura is a 63 yo woman with hx essential hypertension, DM presents with 3 days GI symptoms, congestion, body aches found to be COVID positive at home presents with increasing shortness of breath noted to be hypoxic to 60's by EMS on
arrival.
# Hypoxemic respiratory failure likely secondary to COVID with superimposed bacterial pneumonia
-Patient desaturated on high-flow night of admission placed on non-invasive ventilation now on high flow
-CXR with bilateral airspace opacities with improvement this AM, may have been partially related to fluid (s/p lasix)
-COVID-positive as outpatient repeat positive here
-Chest x-ray shows bilateral parenchymal opacities right greater than left likely pneumonia
-Check sputum culture
-Dexamethasone 6 mg daily
-continue treatment for CAP with Ceftraixone/Doxy
-IV Remdesivir
-appreciate Social Work Coordinator
Coag Neg staph 1/4 bottles suspect contaminant
# Hyperglycemia secondary to infection
#Type 2 diabetes
-Insulin sliding scale
-Hold pioglitazone, glyburide
-Start Lantus instead given addition of steroids
Essential hypertension
-SHOWER DOORS AND PANELS FABRICATOR losartan, amlodipine resumed
Anxiety/depression
-Continue Lexapro
Full code
DVT prophylaxis�Lovenox
Diabetic diet
Total Critical Care Time 45 minutes. I was immediately available to the patient and staff. I personally examined, reviewed labs, diagnostic images/reports, interpretations, treatment plans, discussed patient care with other providers and family
or caregivers (if patient is unable to make decisions), entered orders as appropriate and documented the medical record.
Anticipated Discharge: > 48 hours
Subjective/Interval History
-
Date of Service: June 06, 2024
feeling better today
on 10L high flow
Objective Data
-
Labs:
Laboratory Results
06/06/24
05:05
WBC 14.4 H
Hgb 10.8 L
Hct 34.6 L
Plt Count 238
Sodium 140
Potassium 3.9
Chloride 107
Carbon Dioxide 24
BUN 31 H
Creatinine 0.9
Glucose 220 H
Calcium 8.8
Total Bilirubin 0.1 L
AST 75 H
ALT 28
Alkaline Phosphatase 79
Vital Signs:
Vital Signs
Temp Pulse Resp BP Pulse Ox
98.9 F 68 23 144/76 95
06/06/24 04:00 06/06/24 06:45 06/06/24 06:45 06/06/24 06:00 06/06/24 06:45
I&O
06/05/24 06/06/24 06/07/24
06:59 06:59 06:59
Intake Total 720 / 720
Output Total 100 / 100 1800 / 1800
Balance -100 / -100 -1080 / -1080
Review of Systems
-
History Source: Patient
All other systems: Reviewed and negative
Physical Exam
-
General: Other (awake, alert with NIV mask on )
HEENT: PERRLA
Respiratory: Decreased Breath Sounds; Negative Wheezes
Cardiac: Regular Rhythm and S1/S2
GI: Soft and Nontender
Musculoskeletal: No Edema
Skin: Warm and Dry; Negative Rash
Neuro: AO x 3
Psych: Calm
Data Reviewed
-
Diagnostic Radiology: Report Reviewed by me
Labs: Labs Reviewed by me
--- NOTE | 2024-06-06 09:48 | W.PN.PUL.V3 ---
Today's Communication / Plan
-
Wean oxygen
Antibiotics
Mucolytics
Assessment
-
63-year-old morbidly obese unvaccinated female who had COVID once with [id number] smoking history and with a past medical history of hypertension, hyperlipidemia, DM type II and anxiety who presents with low oxygen levels. Patient has been more
short of breath for past 2 days which worsened and 911 was called and when EMS arrived her saturations were in the 60s on room air. 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
issues' with nausea, reduced appetite, abdominal discomfort and dry heaving. About 3 days prior to arrival she felt in her usual state of health. EMS applied NRB onto the patient - initially in the ER she was tachycardic to 123, breathing at 26
breaths/min, saturating 92% on nonrebreather and BP 156/86. Initial labs showed mild leukocytosis to 11.9, glucose 285, and COVID-19 antigen negative. Blood cultures were collected and flu A/B swab was negative. Initial CXR showed bilateral
parenchymal opacities, worse on the right. In the ER she was given Decadron 10 mg IVP X1, Zosyn, vancomycin and IVF with NS 0.9% X1 liter. She was then transitioned to high flow nasal cannula however still was hypoxic so she was transition to
noninvasive ventilation, and admitted to the ICU for further care. Paralegal Assistant services consulted for additional management/recommendations.
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
Impression:
#Acute respiratory failure with hypoxia due to multifocal pneumonia in the setting of reported being positive for COVID-19 recently requiring NIV; possible component of acute decompensated heart failure with acute pulmonary edema given marked
improvement in CXR within 24 hrs with Tx with NIV and s/p lasix
#CAP (R>L)
#Acute anemia
#Metabolic acidosis with normal anion gap
#DM type II (HbA1C: 7.4 on 06/05/2024) c/b hyperglycemia
#Transaminitis
#Morbid Obesity (BMI: 44.5)
#History of hypertension
#History of hyperlipidemia
#Anxiety
Plan:
Respiratory status is relatively [id number] suggest bacterial pneumonia and less likely viral pneumonia-patient unvaccinated, however, had COVID once before offering long-term natural immunity
Supplemental oxygen as needed-currently on 8 L mid flow-attempt to wean
Wean noninvasive ventilation
Incentive spirometry
Inhalers as needed
Isolation per protocol
[id number] smoker-quit 1988-not on inhalers at home
Chest x-ray 06/05/2024-overall improvement in bilateral parenchymal opacifications
Follow radiographically
Consider CT chest with PE protocol if hypoxemia on proportion to clinical situation-currently pneumonia and previous smoking history explains degree of hypoxemia and low clinical suspicion-continue DVT prophylaxis
Cultures reviewed
Isolation per protocol
Remdesivir initiated by primary team--repeat COVID test positive
Decadron per protocol
Empiric antibiotics-ceftriaxone and doxycycline
Trend procalcitonin-currently negative
Monitor intake/output
Echocardiogram 06/05/2024-EF 55-60%, mild mitral regurgitation, PA systolic 35-40
Trend proBNP
Monitor blood sugar
Insulin supplementation as needed
Follow LFTs
Monitor hemoglobin
Transfuse if needed
DVT prophylaxis-on Lovenox
Nutrition
Early mobilization
Outpatient pulmonary/sleep disorders [id number] suspicion for underlying obstructive sleep apnea
Data:
CXR 06/04/2024: Bilateral parenchymal opacities, right greater than left. Findings felt to most likely represent pneumonia. Asymmetric pulmonary edema is a differential consideration.
Subjective Data
-
Date of Service:
Date of Service: June 06, 2024
Chief Complaint: Pulmonary Follow Up, Dyspnea Follow Up and Pneumonia Follow Up
Subjective:
Feels a little better, minimal productive cough, some chest congestion, no wheezing, no abdominal pain
Review of Systems
General: Other (Per HPI)
Objective Data
Data Reviewed
Vital Signs / I&O:
Vital Signs
Temp Pulse Resp BP Pulse Ox
97.8 F 67 17 150/71 95
06/06/24 07:30 06/06/24 08:00 06/06/24 08:00 06/06/24 08:00 06/06/24 08:00
Intake and Output
06/05/24 06/06/24 06/07/24
06:59 06:59 06:59
Intake Total 720 / 720
Output Total 100 / 100 1800 / 1800
Balance -100 / -100 -1080 / -1080
SaO2: 95
Nasal Cannula flow liters per minute: 50
Physical Exam
General: Respiratory Distress (n)
HEENT: Normocephalic, Anicteric and Moist Mucous Membranes
Cardiovascular: Regular Rhythm
Respiratory: Wheeze (n), Crackles, Rhonchi, Non-Labored Respirations, Accessory Resp Muscle Use (n) and Stridor
GI: Soft, Non Distended and Non Tender
Neurology: Awake, Alert and No Motor Deficits
Skin: Warm, Good Color, Cyanosis (n), Jaundice (n) and Rash (n)
Labs/Micro/Reports
Lab Data
06/06/24 05:05
06/06/24 05:05
Microbiology
06/04/24 18:59 Blood/Venous Blood Culture - Preliminary
No Growth in 24 hours- Final report to follow
06/04/24 19:24 Blood/Venous Blood Culture - Preliminary
Positive culture in progress
06/04/24 19:24 Blood/Venous Gram Stain - Preliminary
06/04/24 18:59 Nasal Swab Influenza Types A & B (ALYCE) - Final
Negative for Influenza A & B, NAAT
Negative results must be combined with clinical observations
and patient history.
Nucleic Acid Amplification test (NAAT)performed on the
[employer] platform.
[2024-06-06] MEDS: NOVOLOG FLEXPEN-MODERATE RESISTANCE 3 UNITS SC ×2 (10:03→13:39)
[2024-06-06] MEDS: MIRALAX 17 GRAMS PO (10:05)
[2024-06-06] MEDS: NORVASC 10 MG PO (10:06)
[2024-06-06] MEDS: LIPITOR 20 MG PO (10:06)
[2024-06-06] MEDS: COLACE 100 MG PO ×2 (10:06→21:01)
[2024-06-06] MEDS: VIBRAMYCIN 100 MG PO ×2 (10:06→21:01)
[2024-06-06 12:44] LABS: Glucose - Point of Care 224 mg/dl (70-99)
[2024-06-06] MEDS: ROCEPHIN 2000 MG IV (13:39)
[2024-06-06] MEDS: STERILE WATER FOR INJECTION 20 ML IV (13:39)
--- NOTE | 2024-06-06 14:31 | PN.CDI ---
CDI
- -
CDI:
Physician Documentation Request
Admit Date: 06/04/24 20:47
Dear Doctor Norberto,
Please review the following and provide your response in the progress notes.
Clinical Indicators:
Pt admitted with COVI-19 PNA/Bacterial PNA/ Acute Hypoxic Respiratory Failure
Documented per ED, ' ...With multiple SIRS criteria and severe pneumonia will cover with antibiotics upfront although in the setting of positive COVID possible this is a viral pneumonia.....'
On admission Tmax 100.4, HR 123, Respirations 23
Pt being treated with Ceftriaxone/Doxy for CAP
Please clarify which of the following most accurately describes the status of the patient's infection:
Sepsis-POA
- Systemic manifestations of infection, with 2 or more SIRS criteria which include:
- Fever >100.4 degrees F or hypothermia < 96.8 degrees F
- Leukocytosis - WBC > 12,000 or leukopenia - WBC < 4,000 or > 10% bands
- Tachycardia > 90 beats per minute
- Tachypnea - RR > 20 breaths per minute or PaCO2 , 32mmHg
Source: Merck Manual 2013
COVID-19 PNA/Bacterial PNA only Without Systemic Illness
Other ( please specify)
Use of terms such as suspected, likely, concern for, or probable (associated with a specific diagnosis that is being evaluated, monitored, or treated as if it exists) are acceptable and can be coded in the inpatient setting, when documented at the
time of discharge.
Thank you,
Mara Baldwin RN
CDI Specialist
[facility]
Please use your independent medical judgment in providing your response.
--- NOTE | 2024-06-06 14:35 | PN.CDI ---
CDI
- -
CDI:
Physician Documentation Request
Admit Date: 06/04/24 20:47
Dear Doctor Norberto,
Please review the following and provide your response in the progress notes.
Clinical Indicators:
Pt admitted with COVID-19 PNA/Bacterial PNA/ Acute Hypoxic Respiratory Failure
Documented per H&P, ' Patient desaturating on high flow oxygen. Trying noninvasive ventilator. Upgrading to ICU. Give 40 IV Lasix. ...'
Progress note 06/06,' -CXR with bilateral airspace opacities with improvement this AM, may have been partially related to fluid (s/p Lasix)...'
Pulmonology progress note 06/06, ' Echocardiogram 06/05/2024-EF 55-60%, mild mitral regurgitation, PA systolic 35-40... possible component of acute decompensated heart failure with acute pulmonary edema given marked improvement in CXR within 24 hrs
with Tx with NIV and s/p Lasix...'
BNP 4250
Please provide a diagnosis for the above documented pulmonary edema /Treatment of IV Lasix :
Multifactorial Acute Diastolic CHF/ Acute noncardiogenic pulmonary edema
Acute Diastolic CHF
Other ( please specify)
Use of terms such as suspected, likely, concern for, or probable (associated with a specific diagnosis that is being evaluated, monitored, or treated as if it exists) are acceptable and can be coded in the inpatient setting, when documented at the
time of discharge.
Thank you,
Mraa Baldwin RN
CDI Specialist
[facility]
Please use your independent medical judgment in providing your response.
--- NOTE | 2024-06-06 14:42 | PN.CDI ---
CDI
- -
CDI:
Physician Documentation Request
Admit Date: 06/04/24 20:47
Dear Doctor Norberto,
Please review the following and provide your response in the progress notes.
Clinical Indicators:
Pt admitted with COVID-19 PNA/Bacterial PNA/ Acute Hypoxic Respiratory Failure
Documented per ED, ' ...With multiple SIRS criteria and severe pneumonia will cover with antibiotics upfront although in the setting of positive COVID possible this is a viral pneumonia.....'
On admission Tmax 100.4, HR 123, Respirations 23
Pt being treated with Ceftriaxone/Doxy for CAP
Please clarify which of the following most accurately describes the status of the patient's infection:
Sepsis-POA
- Systemic manifestations of infection, with 2 or more SIRS criteria which include:
- Fever >100.4 degrees F or hypothermia < 96.8 degrees F
- Leukocytosis - WBC > 12,000 or leukopenia - WBC < 4,000 or > 10% bands
- Tachycardia > 90 beats per minute
- Tachypnea - RR > 20 breaths per minute or PaCO2 , 32mmHg
Source: Merck Manual 2013
COVID-19 PNA/Bacterial PNA only Without Systemic Illness
Other ( please specify)
Use of terms such as suspected, likely, concern for, or probable (associated with a specific diagnosis that is being evaluated, monitored, or treated as if it exists) are acceptable and can be coded in the inpatient setting, when documented at the
time of discharge.
Thank you,
Mara Baldwin RN
CDI Specialist
[facility]
Please use your independent medical judgment in providing your response.

Initialized on 06/06/24 14:31 - END OF NOTE
Please use your independent medical judgment in providing your response.
[2024-06-06] MEDS: LOVENOX 40 MG SC (16:40)
[2024-06-06] MEDS: NOVOLOG FLEXPEN-MODERATE RESISTANCE SC (16:40)
[2024-06-06] MEDS: DECADRON 6 MG IV (16:41)
--- NOTE | 2024-06-06 16:48 | PTCARENOTE ---
Rec'd pt this AM. encourged OOB to BSC. Pt complained of constipation. meds given and pt able to have BM this afternoon. Encouarged OOB to chair tomorrow. O2 weaned to 4L NC successfully. O2 sat 95%
[2024-06-06 16:50] LABS: Glucose - Point of Care 147 mg/dl (70-99)
[2024-06-06] MEDS: MUCINEX 1200 MG PO (21:01)
[2024-06-06] MEDS: LEXAPRO 10 MG PO (21:01)
[2024-06-06] MEDS: LANTUS 0.15 UNITS SC (21:59)
[2024-06-06] MEDS: VEKLURY 250 MG IV ×2 (21:59)
[2024-06-06 22:12] LABS: Glucose - Point of Care 187 mg/dl (70-99)
[2024-06-07] VITALS (11 sets, daily range): BP systolic 139–171; BP diastolic 64–97; BMI 43.2
--- NOTE | 2024-06-07 01:02 | PTCARENOTE ---
assumed care of patient. pt is AAOx3- able to make needs known. on 4L 96%, no c/o pain or SOB. pt is anxious at times, asking many questions. questions answered to best of ability. PW in place draining yellow urine. VSS. covid precautions
maintained. care ongoing.
[2024-06-07 04:23] LABS: % Basophils 0.1 % (0-2); % Eosinophils 0.1 % (0-6); % Immature Granulocytes 0.4 % (0-0.5); % Lymphocytes 6.3 % (20.5-51.1); % Neutrophils 86.1 % (42.2-75.2); Absolute Immature Granulocytes 0.1 10^3/uL (0-0.05); Absolute Lymphocytes 0.9 10^3/uL (1.2-3.4); Absolute Neutrophils 11.7 10^3/uL (1.4-6.5); Hematocrit 35.7 % (37.0-47.0); Hemoglobin 11.4 g/dL (12.0-16.0); Mean Corp Hgb Conc. 31.9 g/dL (33.0-37.0); Mean Corpuscular Hgb 26.6 pg (27.0-31.0); Mean Corpuscular Volume 83.2 fL (81.0-99.0); Mean Platelet Volume 10.6 fL (7.4-10.4); Nucleated Red Blood Cells % 0 %; Platelet Count 272 10^3/uL (130-400); Red Blood Cell Count 4.29 10^6/uL (4.20-5.40); Red Cell Dist. Width 13.9 % (11.5-14.5); White Blood Cell Count 13.6 10^3/uL (4.8-10.8)
[2024-06-07 05:02] LABS: Blood Urea Nitrogen 31 mg/dl (7-17); Calcium 9.2 mg/dl (8.4-10.2); Carbon Dioxide 27 mmol/L (22-30); Chloride 105 mmol/L (98-107); Estimated Creatinine Clearance 84 ml/min; Glucose 199 mg/dl (70-99); Magnesium 2.2 mg/dl (1.6-2.3); Potassium 4.1 mmol/L (3.5-5.1); Sodium 139 mmol/L (135-145); eGFR > 60.00
[2024-06-07 07:53] LABS: Glucose - Point of Care 179 mg/dl (70-99)
[2024-06-07] MEDS: NOVOLOG FLEXPEN-MODERATE RESISTANCE 1 UNITS SC ×3 (08:56→17:31)
[2024-06-07] MEDS: MUCINEX 1200 MG PO ×2 (08:58→21:05)
[2024-06-07] MEDS: COLACE 100 MG PO (08:58)
[2024-06-07] MEDS: LIPITOR 20 MG PO (08:59)
[2024-06-07] MEDS: VIBRAMYCIN 100 MG PO ×2 (08:59→21:05)
[2024-06-07] MEDS: NORVASC 10 MG PO (09:00)
[2024-06-07] MEDS: COZAAR 100 MG PO (09:00)
--- NOTE | 2024-06-07 09:05 | PTCARENOTE ---
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 Patient resting comfortably in bed. AAO, VSS. No events noted overnight. No complaints of pain this AM but does report some unsettling in her stomach. Miralax on hold for right now and we address later if
patient ok to take, Colace was taken.
Currently on 4L N/C, will attempt to wean as tolerated. No tests scheduled for today at this time. Call lyon in reach.
--- NOTE | 2024-06-07 09:19 | W.PN.HOSP.TC ---
Today's Communication/Plan
-
IV steroids IV antibiotics and antiviral.
Assessment / Plan
Assessment / Plan
Physical exam:
General: Acutely ill
HEENT: Normocephalic, Atraumatic and Moist Mucous Membranes
Respiratory: Clear to Auscultation; Negative Wheezes, Rales or Rhonchi
Cardiac: Regular Rhythm and S1/S2
GI: Soft, Nontender and Nondistended
Musculoskeletal: No Clubbing, No Cyanosis and No Edema
Neuro: Awake, Alert and Oriented
Psych: Calm
A/P:
Acute hypoxic respiratory failure:
Etiology multifactorial felt to be related to COVID, superimposed bacterial pneumonia, and heart failure (acute diastolic CHF, resolved)
On 4 L of oxygen (she was on HFO upon admission)
Status post diuretics
Continue antiviral
Continue steroids
Continue antibiotics
Titrate oxygen as able
Blood cultures with CONS likely contaminant
Diabetes mellitus type 2:
Insulin sliding scale
Holding oral hypoglycemic
Continue Lantus
Hypertension:
Continue amlodipine 10 mg p.o. daily and losartan 100 mg p.o. daily
Hyperlipidemia:
Continue atorvastatin 20 mg p.o. daily
Depression:
Continue escitalopram 10 mg p.o. nightly
DVT prophylaxis:
Lovenox SQ
CODE STATUS:
Full code
Total time spent on today's encounter was 52 minutes which included time spent in counseling the patient/family regarding diagnosis and treatment plan as listed above, goals of care, and symptom management. Case was discussed with nursing staff,
specialists, and care coordinators/case management. All labs and imaging personally reviewed by me. Remainder the time spent in detailed review of previous records, lab data, imaging, and other medical provider documentation.
Anticipated Discharge: > 48 hours
Subjective/Interval History
-
Date of Service: June 07, 2024
Patient feels less short of breath. Less cough. Afebrile
Objective Data
-
Labs:
Laboratory Results
06/07/24
04:13
WBC 13.6 H
Hgb 11.4 L
Hct 35.7 L
Plt Count 272
Sodium 139
Potassium 4.1
Chloride 105
Carbon Dioxide 27
BUN 31 H
Creatinine 0.8
Glucose 199 H
Calcium 9.2
Vital Signs:
Vital Signs
Temp Pulse Resp BP Pulse Ox
98.1 F 78 18 162/79 96
06/07/24 02:32 06/07/24 09:00 06/07/24 06:00 06/07/24 09:00 06/07/24 06:00
I&O
06/06/24 06/07/24 06/08/24
06:59 06:59 06:59
Intake Total 720 / 720 480 / 480
Output Total 1800 / 1800 1650 / 1650
Balance -1080 / -1080 -1170 / -1170
--- NOTE | 2024-06-07 09:49 | W.PN.PUL.V3 ---
Today's Communication / Plan
-
Continue weaning FiO2
Continue antibiotics
Remdesivir and steroids continue
Isolation per protocol
Assessment
-
63-year-old morbidly obese unvaccinated female who had COVID once with [id number] smoking history and with a past medical history of hypertension, hyperlipidemia, DM type II and anxiety who presents with low oxygen levels. Patient has been more
short of breath for past 2 days which worsened and 911 was called and when EMS arrived her saturations were in the 60s on room air. 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
issues' with nausea, reduced appetite, abdominal discomfort and dry heaving. About 3 days prior to arrival she felt in her usual state of health. EMS applied NRB onto the patient - initially in the ER she was tachycardic to 123, breathing at 26
breaths/min, saturating 92% on nonrebreather and BP 156/86. Initial labs showed mild leukocytosis to 11.9, glucose 285, and COVID-19 antigen negative. Blood cultures were collected and flu A/B swab was negative. Initial CXR showed bilateral
parenchymal opacities, worse on the right. In the ER she was given Decadron 10 mg IVP X1, Zosyn, vancomycin and IVF with NS 0.9% X1 liter. She was then transitioned to high flow nasal cannula however still was hypoxic so she was transition to
noninvasive ventilation, and admitted to the ICU for further care. Caseworker services consulted for additional management/recommendations.
Chronic conditions TAP GRINDER: Hypertension, hyperlipidemia, DM type II, morbid obesity, anxiety, sebaceous cyst s/p I&D
Impression:
#Acute respiratory failure with hypoxia due to multifocal pneumonia in the setting of reported being positive for COVID-19 recently requiring NIV; possible component of acute decompensated heart failure with acute pulmonary edema given marked
improvement in CXR within 24 hrs with Tx with NIV and s/p lasix
#CAP (R>L)
#Acute anemia
#Metabolic acidosis with normal anion gap
#DM type II (HbA1C: 7.4 on 06/05/2024) c/b hyperglycemia
#Transaminitis
#Morbid Obesity (BMI: 44.5)
#History of hypertension
#History of hyperlipidemia
#Anxiety
Plan:
Respiratory status slowly [id number] suggest bacterial pneumonia and less likely viral pneumonia-patient unvaccinated, however, had COVID once before offering long-term natural immunity
Supplemental oxygen as needed-currently on 4 L-attempt to wean-reviewed with nursing
Wean noninvasive ventilation
Incentive spirometry seen
Inhalers as needed
Isolation per protocol
34-wzzt-jkst smoker-quit 1988-not on inhalers at home
Chest x-ray 06/05/2024-overall improvement in bilateral parenchymal opacifications
Follow radiographically
Consider CT chest with PE protocol if hypoxemia on proportion to clinical situation-currently pneumonia and previous smoking history explains degree of hypoxemia and low clinical suspicion-continue DVT prophylaxis
Cultures reviewed
Isolation per protocol
Remdesivir initiated by primary team--repeat COVID test positive
Decadron per protocol
Empiric antibiotics-ceftriaxone and doxycycline
Trend procalcitonin-currently negative
Monitor intake/output
Echocardiogram 06/05/2024-EF 55-60%, mild mitral regurgitation, PA systolic 35-40
Monitor blood sugar
Insulin supplementation as needed
Monitor hemoglobin
Transfuse if needed
DVT prophylaxis-on Lovenox
Nutrition
Early mobilization
Outpatient pulmonary/sleep disorders [id number]-fd-beza suspicion for underlying obstructive sleep apnea
Data:
CXR 06/04/2024: Bilateral parenchymal opacities, right greater than left. Findings felt to most likely represent pneumonia. Asymmetric pulmonary edema is a differential consideration.
Subjective Data
-
Date of Service:
Date of Service: June 07, 2024
Chief Complaint: Pulmonary Follow Up, Dyspnea Follow Up and Pneumonia Follow Up
Subjective:
Slowly improving, no complaints of worsening shortness of breath, chest pain or abdominal pain
Review of Systems
General: Other (Per HPI)
Objective Data
Data Reviewed
Vital Signs / I&O:
Vital Signs
Temp Pulse Resp BP Pulse Ox
98.1 F 78 18 162/79 96
06/07/24 02:32 06/07/24 09:00 06/07/24 06:00 06/07/24 09:00 06/07/24 06:00
Intake and Output
06/06/24 06/07/24 06/08/24
06:59 06:59 06:59
Intake Total 720 / 720 480 / 480
Output Total 1800 / 1800 1650 / 1650
Balance -1080 / -1080 -1170 / -1170
SaO2: 96
Nasal Cannula flow liters per minute: 4
Physical Exam
General: Respiratory Distress (n) and Comfortable
HEENT: Normocephalic, Anicteric and Moist Mucous Membranes
Cardiovascular: Regular Rhythm
Respiratory: Wheeze (n), Crackles, Rhonchi, Non-Labored Respirations, Accessory Resp Muscle Use (n) and Stridor
GI: Soft, Non Distended and Non Tender
Neurology: Awake, Alert and No Motor Deficits
Skin: Warm, Good Color, Cyanosis (n), Jaundice (n) and Rash (n)
Labs/Micro/Reports
Lab Data
06/07/24 04:13
06/07/24 04:13
Microbiology
06/04/24 18:59 Blood/Venous Blood Culture - Preliminary
No Growth in 48 hours- Final report to follow
06/06/24 05:56 Sputum Gram Stain - Preliminary
06/04/24 19:24 Blood/Venous Blood Culture - Preliminary
Coagulase neg. staphylococcus
Additional testing on request
06/04/24 19:24 Blood/Venous Gram Stain - Preliminary
06/04/24 18:59 Nasal Swab Influenza Types A & B (ALYCE) - Final
Negative for Influenza A & B, NAAT
Negative results must be combined with clinical observations
and patient history.
Nucleic Acid Amplification test (NAAT)performed on the
[employer] NOW platform.
[2024-06-07] MEDS: MIRALAX PO (12:17)
[2024-06-07 12:20] LABS: Glucose - Point of Care 184 mg/dl (70-99)
[2024-06-07] MEDS: ROCEPHIN 2000 MG IV (12:52)
[2024-06-07] MEDS: STERILE WATER FOR INJECTION 20 ML IV (12:53)
--- NOTE | 2024-06-07 14:43 | CM ---
Chart reviewed: Covid -19 positive; per Pulmonary, Continue weaning FiO2; Continue antibiotics, Remdesivir and steroids;
Isolation per protocol
Plan: CM will continue to monitor and support coordination of disposition needs when determined
[2024-06-07] MEDS: LOVENOX 40 MG SC (17:32)
[2024-06-07] MEDS: DECADRON 6 MG IV (17:32)
[2024-06-07 17:40] LABS: Glucose - Point of Care 159 mg/dl (70-99)
[2024-06-07] MEDS: LEXAPRO 10 MG PO (21:05)
[2024-06-07] MEDS: VEKLURY 250 MG IV (21:05)
[2024-06-07] MEDS: COLACE PO (21:05)
[2024-06-07] MEDS: LANTUS 0.15 UNITS SC (21:05)
[2024-06-07 21:17] LABS: Glucose - Point of Care 255 mg/dl (70-99)
[2024-06-08] VITALS (16 sets, daily range): BP systolic 140–185; BP diastolic 66–84; PULSE 91; O2SAT 95–96
--- NOTE | 2024-06-08 02:24 | PTCARENOTE ---
assumed care of patient. pt is AAOx3, very pleasant- able to make needs known, can be very anxious at times. on 2L NC 95%. no c/o trouble breathing. pt does admit to a productive cough. PW intact. care ongoing.
[2024-06-08 04:49] LABS: % Basophils 0.1 % (0-2); % Eosinophils 0.5 % (0-6); % Immature Granulocytes 0.7 % (0-0.5); % Lymphocytes 9.3 % (20.5-51.1); % Monocytes 6.6 % (1.7-9.3); % Neutrophils 82.8 % (42.2-75.2); Absolute Eosinophils 0.1 10^3/uL (0-0.7); Absolute Immature Granulocytes 0.1 10^3/uL (0-0.05); Absolute Monocytes 0.7 10^3/uL (0.1-0.6); Hematocrit 36.2 % (37.0-47.0); Hemoglobin 11.8 g/dL (12.0-16.0); Mean Corp Hgb Conc. 32.6 g/dL (33.0-37.0); Mean Corpuscular Hgb 26.9 pg (27.0-31.0); Mean Corpuscular Volume 82.5 fL (81.0-99.0); Mean Platelet Volume 10.8 fL (7.4-10.4); Nucleated Red Blood Cells % 0 %; Platelet Count 275 10^3/uL (130-400); Red Blood Cell Count 4.39 10^6/uL (4.20-5.40); Red Cell Dist. Width 13.7 % (11.5-14.5); White Blood Cell Count 10.9 10^3/uL (4.8-10.8)
[2024-06-08 05:03] LABS: Blood Urea Nitrogen 30 mg/dl (7-17); Carbon Dioxide 28 mmol/L (22-30); Chloride 104 mmol/L (98-107); Estimated Creatinine Clearance 84 ml/min; Glucose 224 mg/dl (70-99); Sodium 138 mmol/L (135-145); eGFR > 60.00
[2024-06-08] MEDS: NOVOLOG FLEXPEN-MODERATE RESISTANCE 1 UNITS SC ×3 (08:16→18:09)
[2024-06-08] MEDS: COLACE PO ×2 (08:17→20:14)
[2024-06-08] MEDS: MIRALAX PO (08:17)
[2024-06-08] MEDS: LIPITOR 20 MG PO (08:17)
[2024-06-08] MEDS: VIBRAMYCIN 100 MG PO ×2 (08:17→20:15)
[2024-06-08] MEDS: COZAAR 100 MG PO (08:17)
[2024-06-08] MEDS: NORVASC 10 MG PO (08:17)
[2024-06-08] MEDS: MUCINEX 1200 MG PO ×2 (08:18→20:14)
[2024-06-08 08:24] LABS: Glucose - Point of Care 179 mg/dl (70-99)
--- NOTE | 2024-06-08 08:41 | W.PN.HOSP.TC ---
Today's Communication/Plan
-
Antibiotics, antivirals, steroids.
Assessment / Plan
Assessment / Plan
Physical exam:
General: Acutely ill
HEENT: Normocephalic, Atraumatic and Moist Mucous Membranes
Respiratory: Clear to Auscultation; Negative Wheezes, Rales or Rhonchi
Cardiac: Regular Rhythm and S1/S2
GI: Soft, Nontender and Nondistended
Musculoskeletal: No Clubbing, No Cyanosis and No Edema
Neuro: Awake, Alert and Oriented
Psych: Calm
A/P:
Acute hypoxic respiratory failure:
Etiology multifactorial felt to be related to COVID, superimposed bacterial pneumonia, and heart failure (acute diastolic CHF, resolved)
On 2 L of oxygen today, down from 4 L yesterday (she was on HFO upon admission)
Status post diuretics
Continue antiviral
Continue steroids
Continue antibiotics
Titrate oxygen as able
PT OT eval
Blood cultures with CONS likely contaminant
Diabetes mellitus type 2:
Insulin sliding scale
Holding oral hypoglycemic
Continue Lantus
Hypertension:
Continue amlodipine 10 mg p.o. daily and losartan 100 mg p.o. daily
Add IV hydralazine as needed
Hyperlipidemia:
Continue atorvastatin 20 mg p.o. daily
Depression:
Continue escitalopram 10 mg p.o. nightly
DVT prophylaxis:
Lovenox SQ
CODE STATUS:
Full code
Anticipated Discharge: > 48 hours
Subjective/Interval History
-
Date of Service: June 08, 2024
Patient feels better today. Not able to expectorate much. Afebrile
Objective Data
-
Labs:
Laboratory Results
06/08/24
04:24
WBC 10.9 H
Hgb 11.8 L
Hct 36.2 L
Plt Count 275
Sodium 138
Potassium 4.0
Chloride 104
Carbon Dioxide 28
BUN 30 H
Creatinine 0.8
Glucose 224 H
Calcium 9.0
Vital Signs:
Vital Signs
Temp Pulse Resp BP Pulse Ox
98.4 F 78 19 185/81 95
06/08/24 08:25 06/08/24 08:17 06/08/24 06:00 06/08/24 08:17 06/08/24 06:00
I&O
06/07/24 06/08/24 06/09/24
06:59 06:59 06:59
Intake Total 480 / 480
Output Total 1650 / 1650 700 / 700
Balance -1170 / -1170 -700 / -700
--- NOTE | 2024-06-08 10:22 | W.PN.PUL.V3 ---
Today's Communication / Plan
-
Decadron and remdesivir per protocol
Wean FiO2
Isolation per protocol
Outpatient pulmonary/sleep disorders follow-up
Assessment
-
63-year-old morbidly obese unvaccinated female who had COVID once with [id number]-szfb smoking history and with a past medical history of hypertension, hyperlipidemia, DM type II and anxiety who presents with low oxygen levels. Patient has been more
short of breath for past 2 days which worsened and 911 was called and when EMS arrived her saturations were in the 60s on room air. 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
issues' with nausea, reduced appetite, abdominal discomfort and dry heaving. About 3 days prior to arrival she felt in her usual state of health. EMS applied NRB onto the patient - initially in the ER she was tachycardic to 123, breathing at 26
breaths/min, saturating 92% on nonrebreather and BP 156/86. Initial labs showed mild leukocytosis to 11.9, glucose 285, and COVID-19 antigen negative. Blood cultures were collected and flu A/B swab was negative. Initial CXR showed bilateral
parenchymal opacities, worse on the right. In the ER she was given Decadron 10 mg IVP X1, Zosyn, vancomycin and IVF with NS 0.9% X1 liter. She was then transitioned to high flow nasal cannula however still was hypoxic so she was transition to
noninvasive ventilation, and admitted to the ICU for further care. Weather Forecaster services consulted for additional management/recommendations.
Chronic conditions SERVICE PLANNER: Hypertension, hyperlipidemia, DM type II, morbid obesity, anxiety, sebaceous cyst s/p I&D
Impression:
#Acute respiratory failure with hypoxia due to multifocal pneumonia in the setting of reported being positive for COVID-19 recently requiring NIV; possible component of acute decompensated heart failure with acute pulmonary edema given marked
improvement in CXR within 24 hrs with Tx with NIV and s/p lasix
#CAP (R>L)
#Acute anemia
#Metabolic acidosis with normal anion gap
#DM type II (HbA1C: 7.4 on 06/05/2024) c/b hyperglycemia
#Transaminitis
#Morbid Obesity (BMI: 44.5)
#History of hypertension
#History of hyperlipidemia
#Anxiety
Plan:
Respiratory status slowly eiwfcakyw-h-bjmj suggest bacterial pneumonia and less likely viral pneumonia-patient unvaccinated, however, had COVID once before offering long-term natural immunity
Supplemental oxygen as needed-currently on 2 L-attempt to wean-reviewed with nursing
Wean noninvasive ventilation
Incentive spirometry encouraged
Inhalers as needed
Isolation per protocol
37-yvxa-ddik smoker-quit 1988-not on inhalers at home
Chest x-ray 06/05/2024-overall improvement in bilateral parenchymal opacifications
Follow radiographically
Consider CT chest with PE protocol if hypoxemia on proportion to clinical situation-currently pneumonia and previous smoking history explains degree of hypoxemia and low clinical suspicion-continue DVT prophylaxis
Cultures reviewed
Isolation per protocol
Remdesivir initiated by primary team--repeat COVID test positive
Decadron per protocol
Empiric antibiotics-ceftriaxone and doxycycline
Trend procalcitonin-currently negative
Monitor intake/output
Echocardiogram 06/05/2024-EF 55-60%, mild mitral regurgitation, PA systolic 35-40
Monitor blood sugar
Insulin supplementation as needed
Monitor hemoglobin
Transfuse if needed
DVT prophylaxis-on Lovenox
Nutrition
Early mobilization
Outpatient pulmonary/sleep disorders nkqink-wb-hage suspicion for underlying obstructive sleep apnea
Data:
CXR 06/04/2024: Bilateral parenchymal opacities, right greater than left. Findings felt to most likely represent pneumonia. Asymmetric pulmonary edema is a differential consideration.
Subjective Data
-
Date of Service:
Date of Service: June 08, 2024
Chief Complaint: Pulmonary Follow Up, Dyspnea Follow Up and Pneumonia Follow Up
Subjective:
Feels better, less short of breath, FiO2 weaned, no congestion, chest pain or abdominal pain
Review of Systems
General: Other (Per HPI)
Objective Data
Data Reviewed
Vital Signs / I&O:
Vital Signs
Temp Pulse Resp BP Pulse Ox
98.4 F 78 19 185/81 95
06/08/24 08:25 06/08/24 08:17 06/08/24 06:00 06/08/24 08:17 06/08/24 06:00
Intake and Output
06/07/24 06/08/24 06/09/24
06:59 06:59 06:59
Intake Total 480 / 480 240 / 240
Output Total 1650 / 1650 700 / 700
Balance -1170 / -1170 -700 / -700 240 / 240
SaO2: 95
Nasal Cannula flow liters per minute: 2
Physical Exam
General: Respiratory Distress (n) and Comfortable
HEENT: Normocephalic, Anicteric and Moist Mucous Membranes
Cardiovascular: Regular Rhythm
Respiratory: Wheeze (n), Crackles, Rhonchi, Non-Labored Respirations, Accessory Resp Muscle Use (n) and Stridor
GI: Soft, Non Distended and Non Tender
Neurology: Awake, Alert and No Motor Deficits
Skin: Warm, Good Color, Cyanosis (n), Jaundice (n) and Rash (n)
Labs/Micro/Reports
Lab Data
06/08/24 04:24
06/08/24 04:24
Microbiology
06/04/24 18:59 Blood/Venous Blood Culture - Preliminary
No Growth in 72 hours- Final report to follow
06/06/24 05:56 Sputum Respiratory Culture - Preliminary
Usual Respiratory Michelle
06/06/24 05:56 Sputum Gram Stain - Preliminary
06/04/24 19:24 Blood/Venous Blood Culture - Preliminary
Coagulase neg. staphylococcus
Additional testing on request
06/04/24 19:24 Blood/Venous Gram Stain - Preliminary
[2024-06-08] MEDS: STERILE WATER FOR INJECTION 20 ML IV (13:35)
[2024-06-08] MEDS: ROCEPHIN 2000 MG IV (13:35)
[2024-06-08 13:46] LABS: Glucose - Point of Care 169 mg/dl (70-99)
--- NOTE | 2024-06-08 16:30 | CM ---
Patient who is COVID +. O2 1L. Receiving iV Abx, IV Decadron, IV Remdesivir. PT/OT recommend HH.
Spoke with patient; she doesn't think she will need VN for nurse or PT/OT at home. She also declined HH because she and her have a [employer] at home who has cancer and is undergoing chemo. They have a chair lift for the stairs at home she
can use as needed, which is in place for her who has MS.
Plan watch for home O2 needs.
Plan home.
--- NOTE | 2024-06-08 17:01 | PTCARENOTE ---
Patient AOx3. Patient anxious at times. Emotional support provided to patient throughout shift. NSR on monitor with some periods of bradycardia. VSS. Patient on 1L NC with SpO2 greater than 92%. Assist x1 when OOB. Purewick in place draining yellow
urine. Patient having loose stools. Bowel regimen held. Dr. Cleveland made aware. Call lyon within reach, bed in lowest position, and bed wheels locked.
[2024-06-08] MEDS: LOVENOX 40 MG SC (17:30)
[2024-06-08] MEDS: DECADRON 6 MG IV (17:31)
[2024-06-08 17:46] LABS: Glucose - Point of Care 195 mg/dl (70-99)
--- NOTE | 2024-06-08 18:11 | PTCARENOTE ---
1745: Patient transferred to via wheelchair. Verbal report given to Cici PITTMAN. Patient belongings transferred with patient.
[2024-06-08] MEDS: VEKLURY 250 MG IV (22:03)
[2024-06-08] MEDS: LANTUS 0.15 UNITS SC (22:03)
[2024-06-08] MEDS: LEXAPRO 10 MG PO (22:03)
[2024-06-09 03:05] VITALS: BP 163/76
[2024-06-09] MEDS: MUCINEX 1200 MG PO ×2 (07:52→20:05)
[2024-06-09] MEDS: COZAAR 100 MG PO (07:52)
[2024-06-09] MEDS: LIPITOR 20 MG PO (07:52)
[2024-06-09] MEDS: VIBRAMYCIN 100 MG PO ×2 (07:52→20:05)
[2024-06-09] MEDS: NORVASC 10 MG PO (07:56)
[2024-06-09 07:58] VITALS: BP 178/80
[2024-06-09] MEDS: COLACE PO ×2 (08:45→19:54)
[2024-06-09] MEDS: MIRALAX PO (08:46)
--- NOTE | 2024-06-09 09:02 | W.PN.HOSP.TC ---
Today's Communication/Plan
-
Check stool studies. Discharge planning
Assessment / Plan
Assessment / Plan
Physical exam:
General: Well Developed, Well Nourished and No Apparent Distress
HEENT: Normocephalic, Atraumatic and Moist Mucous Membranes
Respiratory: Clear to Auscultation; Negative Wheezes, Rales or Rhonchi
Cardiac: Regular Rhythm and S1/S2
GI: Soft, Nontender and Nondistended
Musculoskeletal: No Clubbing, No Cyanosis and No Edema
Neuro: Awake, Alert and Oriented
Psych: Calm
A/P:
Acute hypoxic respiratory failure:
Etiology multifactorial felt to be related to COVID, superimposed bacterial pneumonia, and heart failure (acute diastolic CHF, resolved)
On room air today (she was on HFO upon admission)
Status post diuretics
Finished course of antiviral
Continue steroids but switch to oral to complete 10 days course
Continue antibiotics but switch to oral to complete 5 days course
Titrate oxygen as able
PT OT eval
Acute diarrhea:
Check norovirus
Check C. difficile while on antibiotic
She had bowel regimen but that has been stopped 48 hours ago
Blood cultures with CONS likely contaminant
Diabetes mellitus type 2:
Insulin sliding scale
Holding oral hypoglycemic
Continue Lantus
Hypertension:
Continue amlodipine 10 mg p.o. daily and losartan 100 mg p.o. daily
Add IV hydralazine as needed
Hyperlipidemia:
Continue atorvastatin 20 mg p.o. daily
Depression:
Continue escitalopram 10 mg p.o. nightly
DVT prophylaxis:
Lovenox SQ
CODE STATUS:
Full code
Anticipated Discharge: Within 24 hours
Subjective/Interval History
-
Date of Service: June 09, 2024
Patient feeling better from respiratory standpoint. She still having more diarrhea today. Afebrile
Objective Data
-
Labs:
Laboratory Results
06/09/24
06:43
WBC Pending
Hgb Pending
Hct Pending
Plt Count Pending
Sodium Pending
Potassium Pending
Chloride Pending
Carbon Dioxide Pending
BUN Pending
Creatinine Pending
Glucose Pending
Calcium Pending
Vital Signs:
Vital Signs
Temp Pulse Resp BP Pulse Ox
98.0 F 75 14 178/80 93
06/09/24 07:58 06/09/24 07:58 06/09/24 07:58 06/09/24 07:58 06/09/24 07:58
I&O
06/08/24 06/09/24 06/10/24
06:59 06:59 06:59
Intake Total 1450 / 1450
Output Total 700 / 700 1400 / 1400
Balance -700 / -700 50 / 50
[2024-06-09 09:07] LABS: Glucose - Point of Care 216 mg/dl (70-99)
[2024-06-09 09:10] LABS: Blood Urea Nitrogen 28 mg/dl (7-17); Calcium 9.2 mg/dl (8.4-10.2); Carbon Dioxide 27 mmol/L (22-30); Chloride 102 mmol/L (98-107); Estimated Creatinine Clearance 96 ml/min; Glucose 270 mg/dl (70-99); Potassium 3.9 mmol/L (3.5-5.1); Sodium 136 mmol/L (135-145); eGFR > 60.00
[2024-06-09 09:12] LABS: Hematocrit 37.3 % (37.0-47.0); Hemoglobin 12.2 g/dL (12.0-16.0); Mean Corp Hgb Conc. 32.7 g/dL (33.0-37.0); Mean Corpuscular Hgb 26.9 pg (27.0-31.0); Mean Corpuscular Volume 82.3 fL (81.0-99.0); Mean Platelet Volume 10.8 fL (7.4-10.4); Platelet Count 290 10^3/uL (130-400); Red Blood Cell Count 4.53 10^6/uL (4.20-5.40); Red Cell Dist. Width 13.6 % (11.5-14.5); White Blood Cell Count 10.1 10^3/uL (4.8-10.8)
[2024-06-09] MEDS: NOVOLOG FLEXPEN-MODERATE RESISTANCE 3 UNITS SC ×2 (09:49→18:05)
--- NOTE | 2024-06-09 09:52 | W.PN.PUL.V3 ---
Today's Communication / Plan
-
Oxygen weaned to room air
Increase activity
Finite course of Decadron and antibiotics
Outpatient pulmonary/sleep disorders follow-up
Pulmonary will sign off
Assessment
-
63-year-old morbidly obese unvaccinated female who had COVID once with [id number] smoking history and with a past medical history of hypertension, hyperlipidemia, DM type II and anxiety who presents with low oxygen levels. Patient has been more
short of breath for past 2 days which worsened and 911 was called and when EMS arrived her saturations were in the 60s on room air. Patient says that she was diagnosed earlier today [employer] with COVID-19 via home test and she has been having 'GI
issues' with nausea, reduced appetite, abdominal discomfort and dry heaving. About 3 days prior to arrival she felt in her usual state of health. EMS applied NRB onto the patient - initially in the ER she was tachycardic to 123, breathing at 26
breaths/min, saturating 92% on nonrebreather and BP 156/86. Initial labs showed mild leukocytosis to 11.9, glucose 285, and COVID-19 antigen negative. Blood cultures were collected and flu A/B swab was negative. Initial CXR showed bilateral
parenchymal opacities, worse on the right. In the ER she was given Decadron 10 mg IVP X1, Zosyn, vancomycin and IVF with NS 0.9% X1 liter. She was then transitioned to high flow nasal cannula however still was hypoxic so she was transition to
noninvasive ventilation, and admitted to the ICU for further care. [employer] services consulted for additional management/recommendations.
Chronic conditions [employer]IST: Hypertension, hyperlipidemia, DM type II, morbid obesity, anxiety, sebaceous cyst s/p I&D
Impression:
#Acute respiratory failure with hypoxia due to multifocal pneumonia in the setting of reported being positive for COVID-19 recently requiring NIV; possible component of acute decompensated heart failure with acute pulmonary edema given marked
improvement in CXR within 24 hrs with Tx with NIV and s/p lasix
#CAP (R>L)
#Acute anemia
#Metabolic acidosis with normal anion gap
#DM type II (HbA1C: 7.4 on 06/05/2024) c/b hyperglycemia
#Transaminitis
#Morbid Obesity (BMI: 44.5)
#History of hypertension
#History of hyperlipidemia
#Anxiety
Plan:
Respiratory status slowly [id number] suggest bacterial pneumonia and less likely viral pneumonia-patient unvaccinated, however, had COVID once before offering long-term natural immunity
Supplemental oxygen as needed-oxygen has been weaned to room air
No longer requiring noninvasive ventilation
Incentive spirometry encouraged
Inhalers as needed
Isolation per protocol
00-reat-nbbp smoker-quit 1988-not on inhalers at home
Chest x-ray 06/05/2024-overall improvement in bilateral parenchymal opacifications
Follow radiographically
Consider CT chest with PE protocol if hypoxemia on proportion to clinical situation-currently pneumonia and previous smoking history explains degree of hypoxemia and low clinical suspicion-continue DVT prophylaxis
Cultures reviewed
Isolation per protocol
Remdesivir initiated by primary team--repeat COVID test positive-finished a finite course
Decadron per protocol
Empiric antibiotics-ceftriaxone and doxycycline
Trend procalcitonin-currently negative
Monitor intake/output
Echocardiogram 06/05/2024-EF 55-60%, mild mitral regurgitation, PA systolic 35-40
Monitor blood sugar
Insulin supplementation as needed
Monitor hemoglobin
Transfuse if needed
DVT prophylaxis-on Lovenox
Nutrition
Early mobilization
Respiratory status much improved-pulmonary will sign off
Outpatient pulmonary/sleep disorders [id number] suspicion for underlying obstructive sleep apnea
Data:
CXR 06/04/2024: Bilateral parenchymal opacities, right greater than left. Findings felt to most likely represent pneumonia. Asymmetric pulmonary edema is a differential consideration.
Subjective Data
-
Date of Service:
Date of Service: June 09, 2024
Chief Complaint: Pulmonary Follow Up, Dyspnea Follow Up and Pneumonia Follow Up
Subjective:
Feels improved, off oxygen, minimal cough, no distress
Review of Systems
General: Other (Per HPI)
Objective Data
Data Reviewed
Vital Signs / I&O:
Vital Signs
Temp Pulse Resp BP Pulse Ox
98.0 F 75 14 178/80 93
06/09/24 07:58 06/09/24 07:58 06/09/24 07:58 06/09/24 07:58 06/09/24 07:58
Intake and Output
06/08/24 06/09/24 06/10/24
06:59 06:59 06:59
Intake Total 1450 / 1450
Output Total 700 / 700 1400 / 1400
Balance -700 / -700 50 / 50
SaO2: 93
Nasal Cannula flow liters per minute: 1
Physical Exam
General: Respiratory Distress (n) and Comfortable
HEENT: Normocephalic, Anicteric and Moist Mucous Membranes
Cardiovascular: Regular Rhythm
Respiratory: Wheeze (n), Crackles, Rhonchi, Non-Labored Respirations, Accessory Resp Muscle Use (n) and Stridor
GI: Soft, Non Distended and Non Tender
Neurology: Awake, Alert and No Motor Deficits
Skin: Warm, Good Color, Cyanosis (n), Jaundice (n) and Rash (n)
Labs/Micro/Reports
Lab Data
06/09/24 06:43
06/09/24 06:43
Microbiology
06/04/24 18:59 Blood/Venous Blood Culture - Preliminary
No Growth in 4 days- Final report to follow
06/06/24 05:56 Sputum Respiratory Culture - Final
Usual Respiratory Michelle
06/06/24 05:56 Sputum Gram Stain - Final
06/04/24 19:24 Blood/Venous Blood Culture - Preliminary
Coagulase neg. staphylococcus
Additional testing on request
12/15/24 19:24 Blood/Venous Gram Stain - Preliminary
[2024-06-09 11:00] VITALS: BP 182/84
[2024-06-09] MEDS: APRESOLINE 10 MG IV ×2 (11:36→19:57)
[2024-06-09 11:57] LABS: Glucose - Point of Care 169 mg/dl (70-99)
--- NOTE | 2024-06-09 13:16 | CM ---
Patient seen at bedside.
IMM explained & signed. In chart.
On RA, decadron IV abt
PT rec HH
Patient declining HH
PLAN: Home, declines home health
family to transport
[2024-06-09] MEDS: OMNICEF 300 MG PO ×2 (13:22→20:05)
[2024-06-09] MEDS: DECADRON 6 MG PO (13:22)
[2024-06-09] MEDS: NOVOLOG FLEXPEN-MODERATE RESISTANCE 1 UNITS SC (13:23)
[2024-06-09 14:53] VITALS: BP 139/109
[2024-06-09] MEDS: LOVENOX 40 MG SC (17:44)
[2024-06-09 18:05] LABS: Glucose - Point of Care 233 mg/dl (70-99)
[2024-06-09 19:12] VITALS: BP 188/87
[2024-06-09 22:21] LABS: Glucose - Point of Care 278 mg/dl (70-99)
[2024-06-09] MEDS: LEXAPRO 10 MG PO (22:31)
[2024-06-09] MEDS: LANTUS 0.15 UNITS SC (22:31)
[2024-06-09 23:32] VITALS: BP 127/53
[2024-06-10 03:16] VITALS: BP 164/74
[2024-06-10 07:44] LABS: Glucose - Point of Care 216 mg/dl (70-99)
[2024-06-10 08:32] VITALS: BP 188/95
[2024-06-10] MEDS: OMNICEF 300 MG PO (08:33)
[2024-06-10] MEDS: LIPITOR 20 MG PO (08:33)
[2024-06-10] MEDS: MUCINEX 1200 MG PO (08:33)
[2024-06-10] MEDS: MIRALAX PO (08:34)
[2024-06-10] MEDS: DECADRON 6 MG PO (08:35)
[2024-06-10] MEDS: COZAAR 100 MG PO (08:36)
[2024-06-10] MEDS: VIBRAMYCIN 100 MG PO (08:36)
[2024-06-10] MEDS: NORVASC 10 MG PO (08:36)
[2024-06-10] MEDS: COLACE PO (08:36)
[2024-06-10] MEDS: NOVOLOG FLEXPEN-MODERATE RESISTANCE 3 UNITS SC (08:37)
--- NOTE | 2024-06-10 09:17 | W.PN.HOSP.TC ---
Today's Communication/Plan
-
Discharge planning today
Assessment / Plan
Assessment / Plan
Physical exam:
General: Well Developed, Well Nourished and No Apparent Distress
HEENT: Normocephalic, Atraumatic and Moist Mucous Membranes
Respiratory: Clear to Auscultation; Negative Wheezes, Rales or Rhonchi
Cardiac: Regular Rhythm and S1/S2
GI: Soft, Nontender and Nondistended
Musculoskeletal: No Clubbing, No Cyanosis and No Edema
Neuro: Awake, Alert and Oriented
Psych: Calm
A/P:
Acute hypoxic respiratory failure:
Etiology multifactorial felt to be related to COVID, superimposed bacterial pneumonia, and heart failure (acute diastolic CHF, resolved)
On room air today (she was on HFO upon admission)
Status post diuretics
Finished course of antiviral
On oral steroids. Discontinue further steroids since she has been on room air over the last 48 hours.
Continue oral antibiotics for a short course
Titrate oxygen as able
PT OT eval
Acute diarrhea:
Check norovirus
Check C. difficile while on antibiotic
She had bowel regimen but that has been stopped 48 hours ago
Blood cultures with CONS likely contaminant
Diabetes mellitus type 2:
Insulin sliding scale
Holding oral hypoglycemic
Continue Lantus
Hypertension:
Continue amlodipine 10 mg p.o. daily and losartan 100 mg p.o. daily
Add IV hydralazine as needed
Hyperlipidemia:
Continue atorvastatin 20 mg p.o. daily
Depression:
Continue escitalopram 10 mg p.o. nightly
DVT prophylaxis:
Lovenox SQ
CODE STATUS:
Full code
Anticipated Discharge: Today
Subjective/Interval History
-
Date of Service: June 10, 2024
Patient doing well from respiratory standpoint. Blood pressure slightly elevated but asymptomatic and anxious.
Objective Data
-
Vital Signs:
Vital Signs
Temp Pulse Resp BP Pulse Ox
98.3 F 90 18 188/95 97
06/10/24 08:32 06/10/24 08:32 06/10/24 08:32 06/10/24 08:32 06/10/24 08:32
I&O
06/09/24 06/10/24 06/11/24
06:59 06:59 06:59
Intake Total 1450 / 1450 480 / 480
Output Total 1400 / 1400 450 / 450
Balance 50 / 50 30 / 30
[2024-06-10 10:26] LABS: Glucose - Point of Care 223 mg/dl (70-99)
[2024-06-10 11:17] VITALS: BP 171/79
[2024-06-10 11:30] LABS: Glucose - Point of Care 192 mg/dl (70-99)
[2024-06-10] MEDS: NOVOLOG FLEXPEN-MODERATE RESISTANCE 1 UNITS SC (11:55)
[2024-06-10] MEDS: APRESOLINE 10 MG IV (11:55)
--- NOTE | 2024-06-10 14:59 | W.DCSUMMARY ---
Discharge Summary
Discharge Data
Date of Admission: 06/04/24
Date of Discharge: 06/10/24
-
Pending Results: No
Hospital Course
Patient is 63 years old female with history of obesity, hypertension, hyperlipidemia, diabetes mellitus, anxiety came into the hospital hypoxia and shortness of breath. Patient was noted to be in acute hypoxic respiratory failure. She was also
noticed to have COVID-19 and bacterial pneumonia. She was treated with noninvasive ventilation, oxygen supplementation, antibiotics, and steroids. Pulmonary consulted. Patient improved throughout the rest of the hospital stay. She is on room air
oxygenating well. She is afebrile. She has been ambulating without any problems. She feels back to her baseline. She will be discharged in stable condition today.
Discharge duration: 35 minutes
Discharge Plan
-
Patient Disposition: Home (Routine Discharge)
Discharge Diagnosis/Procedures: Acute hypoxic respiratory failure. Coronavirus 19. Bacterial pneumonia. Diarrhea.
Diet: Low Cholesterol
Activity: As tolerated
Blood Work: Please PCP to order CBC, BMP within 1 week
Referrals:
Trudy Culver MD [Family Provider] - in less than 1 week
Ray Huffman MD [Active] - in one to two weeks
Prescriptions:
New
cefdinir 300 mg Capsule
300 mg PO Q12 2 Days Qty: 4 0RF
Continued
atorvastatin [Lipitor] 20 mg Tablet
20 mg PO DAILY
pioglitazone [Actos] 45 mg Tablet
45 mg PO DAILY
amlodipine [Norvasc] 10 mg Tablet
10 mg PO DAILY
losartan 100 mg Tablet
100 mg PO DAILY
escitalopram oxalate [Lexapro] 10 mg Tablet
10 mg PO HS
glyburide 5 mg Tablet
10 mg PO BID
ondansetron 4 mg Tablet,Disintegrating
4 mg PO Q6HPRN PRN (Reason: nausea)
Discharge Orders:
Discharge Patient (As Directed); Ordered 12/21/24
Ordered By: Lenny Cleveland
Discharge Date and Time
Print Language: IRAQI
[2024-06-10 15:04] VITALS: BP 159/80
--- NOTE | 2024-06-10 15:08 | CM ---
CM called to patient on covid restrictions. Patient asked about having her daughter come up and when she was going home. Patient with no needs at this time. CM will continue to follow for discharge planning needs.
Plan; home with no needs
== END 2024-06-10 16:38 | disposition home or self-care (01) | DRG 871 ==
LOC: 2 NORTH 20:47
PROVIDERS: Internal Medicine Critical Care Medicine; Nurse Practitioner Family; Student in an Organized Health Care Education/Training Program; ADMITTING PHYSICIAN Hospitalist; ATTENDING PHYSICIAN Hospitalist; CONSULT PHYSICIAN Internal Medicine Critical Care Medicine; EMERGENCY PHYSICIAN Emergency Medicine; FAMILY PHYSICIAN Internal Medicine
DX: A41.89 Other specified sepsis (principal); I50.31 Acute diastolic (congestive) heart failure; J12.82 Pneumonia due to coronavirus disease 2019; U07.1 COVID-19; J96.01 Acute respiratory failure with hypoxia; J15.9 Unspecified bacterial pneumonia; E87.20 Acidosis, unspecified; Z68.41 Body mass index [BMI] 40.0-44.9, adult; E66.01 Morbid (severe) obesity due to excess calories; I10 Essential (primary) hypertension; E11.65 Type 2 diabetes mellitus with hyperglycemia; E78.5 Hyperlipidemia, unspecified; F41.9 Anxiety disorder, unspecified; F32.A Depression, unspecified; Z79.84 Long term (current) use of oral hypoglycemic drugs
CPT/HCPCS: 93308; 71045; 80048; 80053; 82805; 82962; 83036; 83605; 83735; 83880; 84100; 84145; 85025; 85027; 85610; 85730; 87040; 87070; 87150; 87205; 87324; 87449; 87502; 87798; 87811; 93005; 93321; 93325; 94660; 96374; 96375; 97116; 97163; 97167; 99291; J0248

== ENCOUNTER → 2024-08-21 11:13 | Outpatient (REF) | payer MEDICARE, SELFPAY ==
[2024-08-21 15:30] LABS: Urine Albumin 3+ (Neg - Trace); Urine Bilirubin Negative (Negative); Urine Character Clear (Clear); Urine Color Yellow; Urine Glucose Negative (Negative); Urine Ketone Negative (Negative); Urine Leukocyte 1+ (Negative); Urine Nitrite Negative (Negative); Urine Occult Blood 2+ (Negative); Urine Urobilinogen Negative (Neg - 1+)
[2024-08-21 15:38] LABS: Uric Acid 5.8 mg/dl (2.5-6.2)
[2024-08-21 15:47] LABS: Urine Bacteria Few (Negative); Urine Red Blood Cell 0-2 /HPF (0-2); Urine Squamous Cell 16-20 /LPF (Few)
[2024-08-21 15:57] LABS: Complement C3 176 mg/dl (88-165)
[2024-08-21 16:05] LABS: Protein/creatinine Ratio 8.9; Urine Protein 250 mg/dl
[2024-08-21 16:09] LABS: Cortisol, Random 9.7 ug/dl
[2024-08-21 16:45] LABS: Microalbumin, Random Urine > 57.0 mg/dl (0.6-1.7)
[2024-08-24 06:17] LABS: ANA, IgG Reflex to HEp-2 None Detected (None Detected)
== END ==
LOC: HWRAD 11:13
PROVIDERS: ATTENDING PHYSICIAN Specialist; FAMILY PHYSICIAN Hospitalist
DX: R80.9 Proteinuria, unspecified (principal); I10 Essential (primary) hypertension
CPT/HCPCS: 76770; 81003; 81015; 82043; 82088; 82533; 82570; 82784; 83516; 83521; 84155; 84156; 84165; 84244; 84550; 86038; 86160; 86255; 86334; 86335

== ENCOUNTER → 2025-04-04 08:55 | Outpatient (REF) | payer MEDICARE, SELFPAY | LOC: DHSLP 08:55 | PROVIDERS: ATTENDING PHYSICIAN Internal Medicine Critical Care Medicine; FAMILY PHYSICIAN Hospitalist | DX: G47.33 Obstructive sleep apnea (adult) (pediatric) (principal) | CPT/HCPCS: 95800 ==